=== PATIENT | male | born 1940 | race Caucasian/White ===

== ENCOUNTER 2020-04-02 10:28 | Outpatient (CLI) | payer MEDICARE, SELFPAY ==
[2020-04-02 10:44] LABS: Basophils Percent Auto 0.4 % (0.2-1.2); Eosinophils Absolute Auto 0.2 K/mm3 (0-0.3); Eosinophils Percent Auto 3.2 % (0-4.4); Hematocrit 48.3 % (42.0-52.0); Hemoglobin 16.6 g/dL (14.0-18.0); Immature Granulocyte Absolute 0.01 K/mm3 (0.00-0.031); Immature Granulocyte Percent A 0.1 % (0-0.5); Lymphocytes Absolute Auto 0.93 K/mm3 (0.9-3.2); Lymphocytes Percent Auto 13.6 % (18.3-44.2); Mean Corpuscular HGB Conc 34.4 g/dl (32-36); Mean Corpuscular Hemoglobin 35.7 pg (26-34); Mean Corpuscular Volume 103.9 fl (80-100); Monocytes Absolute Auto 0.8 K/mm3 (0.1-0.6); Monocytes Percent Auto 11.6 % (2.6-8.5); Neutrophils Absolute Auto 4.9 K/mm3 (1.3-6.7); Neutrophils Percent Auto 71.1 % (45.5-73.1); Platelet Count Result 200 k/mm3 (150-375); Red Blood Count 4.65 M/mm3 (4.6-6.20); Red Cell Distribution Width 11.9 % (11.5-14.5); White Blood Count 6.8 K/mm3 (4.5-10.0)
[2020-04-02 12:20] LABS: Alanine Aminotransferase 18 U/L (4-50); Albumin Level 4.2 g/dL (3.5-5.1); Alkaline Phosphatase 54 U/L (38-126); Anion Gap 8 mmol/L (8-16); Aspartate Amino Transferase 33 U/L (17-59); Bilirubin,Total 0.5 mg/dL (0.2-1.3); Blood Urea Nitrogen 21 mg/dL (9-20); Calcium 9.3 mg/dL (8.4-10.2); Carbon Dioxide 25 mmol/L (22-30); Chloride 105 mmol/L (98-107); Estimated Glomerular Filt Rate > 60; Glucose 91 mg/dL (75-110); Potassium 4.7 mmol/L (3.4-5.0); Sodium 138 mmol/L (137-145)
[2020-04-02 13:26] LABS: Folic Acid > 20.0 ng/mL (2.76->20)
== END 2020-04-02 10:29 | disposition home or self-care (01) ==
PROVIDERS: PCP Family Medicine; Visit Provider Internal Medicine Hematology & Oncology
DX: T45.8X Poisoning by, adverse effect of and underdosing of other primarily systemic and hematological agents (principal)
CPT/HCPCS: 36415; 80053; 82607; 82746; 85025

== ENCOUNTER 2020-09-05 08:03 | Outpatient (CLI) | payer MEDICARE, SELFPAY ==
[2020-09-05 08:38] LABS: Cholesterol 130 mg/dL (0-200); HDL Direct 30 mg/dL; Triglycerides 148 mg/dL (<150)
[2020-09-05 08:55] LABS: LDL Cholesterol Direct 78 mg/dL
== END 2020-09-05 08:04 | disposition home or self-care (01) ==
PROVIDERS: Family Provider Family Medicine; PCP Family Medicine; Visit Provider Internal Medicine Cardiovascular Disease
DX: E78.00 Pure hypercholesterolemia, unspecified (principal); I25.10 Atherosclerotic heart disease of native coronary artery without angina pectoris
CPT/HCPCS: 36415; 80061

== ENCOUNTER 2020-12-28 10:59 | Outpatient (CLI) | payer MEDICARE, SELFPAY ==
[2020-12-28 11:20] LABS: Basophils Absolute Auto 0.1 K/mm3 (0.0-0.1); Basophils Percent Auto 0.8 % (0.2-1.2); Eosinophils Absolute Auto 0.2 K/mm3 (0-0.3); Eosinophils Percent Auto 2.9 % (0-4.4); Hematocrit 48.7 % (42.0-52.0); Hemoglobin 16.6 g/dL (14.0-18.0); Immature Granulocyte Absolute 0.01 K/mm3 (0.00-0.031); Immature Granulocyte Percent A 0.2 % (0-0.5); Lymphocytes Absolute Auto 1.08 K/mm3 (0.9-3.2); Lymphocytes Percent Auto 17.1 % (18.3-44.2); Mean Corpuscular HGB Conc 34.1 g/dl (32-36); Mean Corpuscular Hemoglobin 35.6 pg (26-34); Mean Corpuscular Volume 104.5 fl (80-100); Mean Platelet Volume 9.7 fl (7.4-10.4); Monocytes Absolute Auto 0.8 K/mm3 (0.1-0.6); Monocytes Percent Auto 12.2 % (2.6-8.5); Neutrophils Absolute Auto 4.2 K/mm3 (1.3-6.7); Neutrophils Percent Auto 66.8 % (45.5-73.1); Platelet Count Result 220 k/mm3 (150-375); Red Blood Count 4.66 M/mm3 (4.6-6.20); Red Cell Distribution Width 12.2 % (11.5-14.5); White Blood Count 6.3 K/mm3 (4.5-10.0)
[2020-12-28 12:41] LABS: Alanine Aminotransferase 23 U/L (4-50); Albumin Level 4.4 g/dL (3.5-5.1); Alkaline Phosphatase 58 U/L (38-126); Anion Gap 6 mmol/L (8-16); Aspartate Amino Transferase 44 U/L (17-59); Bilirubin,Total 0.6 mg/dL (0.2-1.3); Blood Urea Nitrogen 19 mg/dL (9-20); Calcium 9.9 mg/dL (8.4-10.2); Carbon Dioxide 28 mmol/L (22-30); Chloride 103 mmol/L (98-107); Estimated Glomerular Filt Rate > 60; Glucose 82 mg/dL (75-110); Potassium 4.9 mmol/L (3.4-5.0); Sodium 137 mmol/L (137-145)
[2020-12-28 14:48] LABS: Folic Acid > 20.0 ng/mL (2.76->20)
== END 2020-12-28 11:00 | disposition home or self-care (01) ==
LOC: ANHLAB 11:01
PROVIDERS: PCP Family Medicine; Visit Provider Internal Medicine Hematology & Oncology
DX: T45.8X Poisoning by, adverse effect of and underdosing of other primarily systemic and hematological agents (principal)
CPT/HCPCS: 36415; 80053; 82607; 82746; 85025

== ENCOUNTER 2021-10-25 07:39 | Outpatient (CLI) | payer MEDICARE, SELFPAY ==
[2021-10-25 09:00] LABS: Alanine Aminotransferase 25 U/L (4-50); Albumin Level 4.2 g/dL (3.5-5.1); Alkaline Phosphatase 66 U/L (38-126); Anion Gap 5 mmol/L (8-16); Aspartate Amino Transferase 41 U/L (17-59); Bilirubin,Total 0.6 mg/dL (0.2-1.3); Blood Urea Nitrogen 22 mg/dL (9-20); Calcium 8.7 mg/dL (8.4-10.2); Carbon Dioxide 30 mmol/L (22-30); Chloride 104 mmol/L (98-107); Cholesterol 126 mg/dL (0-200); Estimated Glomerular Filt Rate > 60; Glucose 91 mg/dL (65-110); HDL Direct 29 mg/dL; Potassium 4.1 mmol/L (3.4-5.0); Sodium 139 mmol/L (137-145); Triglycerides 147 mg/dL (<150)
[2021-10-25 09:12] LABS: LDL Cholesterol Direct 66 mg/dL
== END 2021-10-25 07:40 | disposition home or self-care (01) ==
LOC: ANHLAB 07:43
PROVIDERS: PCP Family Medicine; Visit Provider Internal Medicine Cardiovascular Disease
DX: I25.10 Atherosclerotic heart disease of native coronary artery without angina pectoris (principal); E78.00 Pure hypercholesterolemia, unspecified
CPT/HCPCS: 36415; 80053; 80061

== ENCOUNTER 2021-12-18 14:57 | Outpatient (CLI) | payer MEDICARE, SELFPAY ==
[2021-12-18 15:10] LABS: Basophils Percent Auto 0.5 % (0.2-1.2); Eosinophils Absolute Auto 0.2 K/mm3 (0-0.3); Eosinophils Percent Auto 2.2 % (0-4.4); Hematocrit 48.2 % (42.0-52.0); Immature Granulocyte Absolute 0.02 K/mm3 (0.00-0.031); Immature Granulocyte Percent A 0.3 % (0-0.5); Lymphocytes Absolute Auto 1.06 K/mm3 (0.9-3.2); Lymphocytes Percent Auto 14.5 % (18.3-44.2); Mean Corpuscular HGB Conc 33.2 g/dl (32-36); Mean Corpuscular Hemoglobin 36.4 pg (26-34); Mean Corpuscular Volume 109.5 fl (80-100); Mean Platelet Volume 9.3 fl (7.4-10.4); Monocytes Absolute Auto 0.9 K/mm3 (0.1-0.6); Monocytes Percent Auto 11.8 % (2.6-8.5); Neutrophils Absolute Auto 5.2 K/mm3 (1.3-6.7); Neutrophils Percent Auto 70.7 % (45.5-73.1); Platelet Count Result 250 k/mm3 (150-375); White Blood Count 7.3 K/mm3 (4.5-10.0)
[2021-12-18 15:32] LABS: Alanine Aminotransferase 25 U/L (4-50); Albumin Level 4.1 g/dL (3.5-5.1); Alkaline Phosphatase 86 U/L (38-126); Anion Gap 5 mmol/L (8-16); Aspartate Amino Transferase 38 U/L (17-59); Bilirubin,Total 0.4 mg/dL (0.2-1.3); Blood Urea Nitrogen 22 mg/dL (9-20); Calcium 8.7 mg/dL (8.4-10.2); Carbon Dioxide 27 mmol/L (22-30); Chloride 105 mmol/L (98-107); Estimated Glomerular Filt Rate > 60; Glucose 110 mg/dL (65-110); Potassium 4.5 mmol/L (3.4-5.0); Sodium 137 mmol/L (137-145)
[2021-12-18 16:40] LABS: Folic Acid > 20.0 ng/mL (2.76->20)
== END 2021-12-18 14:58 | disposition home or self-care (01) ==
LOC: ANHLAB 14:58
PROVIDERS: PCP Family Medicine; Visit Provider Internal Medicine Hematology & Oncology
DX: T45.8X Poisoning by, adverse effect of and underdosing of other primarily systemic and hematological agents (principal)
CPT/HCPCS: 36415; 80053; 82607; 82746; 85025

== ENCOUNTER 2022-04-12 09:31 | Outpatient (CLI) | payer MEDICARE, OTHER, SELFPAY ==
--- NOTE | ~2022-04-12 | MR_ITS ---
EXAMINATION: MR lumbar spine wo con DATE: 04/12/2022 10:15 INDICATION: Lumbar scoliosis. Degenerative disc disease. Back pain. TECHNIQUE: Magnetic resonance imaging (MRI) of the lumbar spine was performed without intravenous con trast. Sequences included sagittal T2-weighted FSE, sagittal T2-weighted FS FSE, sagittal T1-weighted FSE, and axial T2-weighted FSE. COMPARISON: Lumbar spine MRI 08/03/2018 FINDINGS: There is 21 degrees dextroscoliosis of thoracolumbar spine. There is 3 mm retrolisthesis of L1 on L2. Vertebral body heights are normal. There is severely decreased disc height from T12-L1 thr ough L5-S1 with endplate remodeling. There are bridging endplate osteophytes at multiple levels. The distal spinal cord signal intensity is normal. The conus medullaris is at L2. The following disc leve ls are specifically discussed: T12-L1: The disc is bulging and has an annular fissure. There is moderate bilateral facet joint osteo arthritis. There is mild bilateral neural foraminal stenosis. There is mild central canal stenosis. L1-L2: The disc is bulging and has an annular fissure. There is mild bilateral facet joint osteoarthr itis. There is mild right and moderate left neural foraminal stenosis. There is mild central canal st enosis. L2-L3: The disc is bulging and has an annular fissure. There is moderate right and mild left facet oliverio int osteoarthritis. There is mild right and moderate left neural foraminal stenosis. There is mild ce ntral canal stenosis. L3-L4: The disc is bulging and has an annular fissure. There is severe bilateral facet joint osteoart hritis. There is mild bilateral neural foraminal stenosis. There is mild central canal stenosis. L4-L5: The disc is bulging. There is mild bilateral facet joint osteoarthritis. There is moderate rig ht and mild left neural foraminal stenosis. There is mild central canal stenosis. L5-S1: The disc does not extend beyond the endplate margin. There is mild bilateral facet joint osteo arthritis. There is mild bilateral neural foraminal stenosis. There is no central canal stenosis. IMPRESSION: 1. Severe lumbar spondylosis, stable from 08/03/2018. 2. Thoracolumbar dextroscoliosis. Reviewed, dictated and finalized at location A.
== END 2022-04-12 09:32 | disposition home or self-care (01) ==
PROVIDERS: PCP Family Medicine
DX: M41.9 Scoliosis, unspecified (principal); M51.36 Other intervertebral disc degeneration, lumbar region; M47.896 Other spondylosis, lumbar region
CPT/HCPCS: 72148

== ENCOUNTER 2022-12-29 14:22 | Outpatient (CLI) | payer MEDICARE, OTHER, SELFPAY ==
--- NOTE | ~2022-12-29 | CT_ITS ---
EXAMINATION: CT abdomen pelvis wo/w con DATE: 12/29/2022 15:02 INDICATION: Hematuria TECHNIQUE: Computed tomography (CT) of the abdomen and pelvis was performed without intravenous contr ast. CT of the abdomen and pelvis was then performed with a total of 130 mL Omnipaque-350 intravenous contrast using a double-bolus technique for simultaneous opacification of the renal parenchyma and r enal collecting system. Automated exposure control and iterative reconstruction technique were employ ed. The dose-length product was 1131.06 mGy-cm. COMPARISON: 09/01/2018 FINDINGS: Mild bibasilar atelectasis. Heart size is normal. Atherosclerotic coronary artery calcific location. No pericardial or pleural effusion. 1.3 x 1.0 cm likely reactive anterior mediastinal lymph node. [place] cified right hilar and subcarinal lymph nodes as well as a a few small splenic and hepatic calcificat ions, all consistent with old granulomatous disease. Large calcified gallstone within the otherwise n ormal appearing gallbladder. No intra or extrahepatic biliary ductal dilation. Pancreas and bilateral adrenal glands are normal. 1.8 cm nonenhancing right renal cyst. No urolithiasis or hydronephrosis. The ureters are opacified in their near entirety with no evident filling defects or urothelial irregu larities. There are small regions of relatively hypoenhancing cortical scarring with associated focal atrophy at the upper poles of the bilateral kidneys likely sequela of prior infection or infarction. Marked enlargement of the prostate which measures 8.6 x 6.7 x 7.3 cm which impresses upon the base o f the bladder. There are postoperative changes of the prostate with surgical clips with interposition primarily along the right anterior margin of the prostate which suggests mass effect is asymmetric e nlargement of the proximal tip centered at the posterior left side of the prostate. There is moderate colonic diverticulosis with a sigmoid predominance. There is no adjacent inflammatory change to sug gest diverticulitis. Small bowel and appendix are normal. No free intraperitoneal gas or fluid. No pa thologically enlarged abdominal or pelvic lymphadenopathy. Lumbar dextro scoliosis with severe lumbar and lower thoracic spondylosis. There are also bridging osteophytes at multiple levels in the spine, consistent with diffuse idiopathic skeletal hyperostosis (DISH). IMPRESSION: 1. Small regions of cortical scarring at the upper poles of both kidneys likely sequela of prior infe ction or infarctions. No urolithiasis or urothelial irregularities. 2. Marked prostatomegaly with postoperative change primarily along the right anterior side of the pro state suggesting asymmetric enlargement or mass effect centered at the more posterior left side of th e prostate which is of indeterminate etiology or significance. 3. Cholelithiasis. 4. Diverticulosis. Reviewed, dictated and finalized at location A. IMPRESSION: 1. Small regions of cortical scarring at the upper poles of both kidneys likely sequela of prior infection or infarctions. No urolithiasis or urothelial irreg ularities. 2. Marked prostatomegaly with postoperative change primarily along the right an terior side of the prostate suggesting asymmetric enlargement or mass effect ce ntered at the more posterior left side of the prostate which is of indeterminat e etiology or significance. 3. Cholelithiasis. 4. Diverticulosis.
[2022-12-29 14:48] LABS: Estimated Glomerular Filt Rate 58
== END 2022-12-29 14:23 | disposition home or self-care (01) ==
PROVIDERS: PCP Family Medicine; Visit Provider Urology
DX: R31.0 Gross hematuria (principal); K57.30 Diverticulosis of large intestine without perforation or abscess without bleeding; K80.20 Calculus of gallbladder without cholecystitis without obstruction
CPT/HCPCS: 74178; Q9967

== ENCOUNTER 2023-01-19 08:10 | Outpatient (CLI) | payer MEDICARE, OTHER, SELFPAY ==
[2023-01-19 08:22] LABS: Basophils Percent Auto 0.4 % (0.2-1.2); Eosinophils Absolute Auto 0.2 K/mm3 (0-0.3); Eosinophils Percent Auto 2.5 % (0-4.4); Hematocrit 40.3 % (42.0-52.0); Hemoglobin 13.6 g/dL (14.0-18.0); Immature Granulocyte Absolute 0.02 K/mm3 (0.00-0.031); Immature Granulocyte Percent A 0.3 % (0-0.5); Lymphocytes Absolute Auto 0.85 K/mm3 (0.9-3.2); Lymphocytes Percent Auto 12.4 % (18.3-44.2); Mean Corpuscular HGB Conc 33.7 g/dl (32-36); Mean Corpuscular Hemoglobin 36.6 pg (26-34); Mean Corpuscular Volume 108.3 fl (80-100); Mean Platelet Volume 9.1 fl (7.4-10.4); Monocytes Absolute Auto 0.8 K/mm3 (0.1-0.6); Monocytes Percent Auto 12.3 % (2.6-8.5); Neutrophils Absolute Auto 4.9 K/mm3 (1.3-6.7); Neutrophils Percent Auto 72.1 % (45.5-73.1); Platelet Count Result 236 k/mm3 (150-375); Red Blood Count 3.72 M/mm3 (4.6-6.20); Red Cell Distribution Width 12.2 % (11.5-14.5); White Blood Count 6.9 K/mm3 (4.5-10.0)
[2023-01-19 10:29] LABS: Alanine Aminotransferase 25 U/L (6-50); Albumin Level 4.1 g/dL (3.5-5.1); Alkaline Phosphatase 59 U/L (38-126); Anion Gap 6 mmol/L (8-16); Aspartate Amino Transferase 39 U/L (17-59); Bilirubin,Total 0.7 mg/dL (0.2-1.3); Blood Urea Nitrogen 20 mg/dL (9-20); Calcium 8.6 mg/dL (8.4-10.2); Carbon Dioxide 28 mmol/L (22-30); Chloride 104 mmol/L (98-107); Estimated Glomerular Filt Rate > 60; Glucose 92 mg/dL (65-110); Potassium 4.3 mmol/L (3.4-5.0); Sodium 138 mmol/L (137-145)
[2023-01-19 11:39] LABS: Folic Acid > 20.0 ng/mL (2.76->20)
== END 2023-01-19 08:11 | disposition home or self-care (01) ==
LOC: ANHLAB 08:12
PROVIDERS: PCP Family Medicine; Visit Provider Internal Medicine Hematology & Oncology
DX: T45.8X Poisoning by, adverse effect of and underdosing of other primarily systemic and hematological agents (principal)
CPT/HCPCS: 36415; 80053; 82607; 82746; 85025

== ENCOUNTER 2023-01-30 09:16 | Outpatient (CLI) | payer MEDICARE, OTHER, SELFPAY ==
--- NOTE | 2023-01-30 09:34 | ECG_ITS ---
Measurements Intervals [place] Rate: 59 P: 34 MN: 201 QRS: 31 QRSD: 97 T: 76 QT: 388 QTc: 387 Interpretive Statements SINUS BRADYCARDIA OTHERWISE NORMAL ECG NO PREVIOUS ECG AVAILABLE FOR COMPARISON Electronically Signed On 01-30-2023 13:30:37 CDT by Leonard Justice M.D.
== END 2023-01-30 09:17 | disposition home or self-care (01) ==
PROVIDERS: PCP Family Medicine; Visit Provider Urology
DX: E78.2 Mixed hyperlipidemia (principal); Z01.818 Encounter for other preprocedural examination
CPT/HCPCS: 93005

== ENCOUNTER 2023-02-06 15:36 | Observation (INO) | payer MEDICARE, OTHER, SELFPAY ==
--- NOTE | 2023-01-30 08:25 | PC.NURSE ---
Report to the Outpatient Waiting Room, entrance under the green pavilion located off [facility], at time _1000 on date _02/05/23 . Planned Procedure Time: _1200 . Time changes happen often and if your time is changed the preop area will call you the afternoon before. - You and your visitor will be asked to self-screen and do not enter if you have any COVID symptoms. - A mask is optional within the hospital at this time. Patients may have clear liquids (water, carbonated beverages, clear teas, apple juice) until 3 hours prior to surgery with a maximum of 20 ounces. - No food from midnight until time of surgery - Infants may have breast milk until 4 hours before surgery, infant formula 6 hours prior to surgery. - Children will be allowed to drink immediately following surgery. If applicable, please bring a bottle or sippy cup to assist with drinking. Juice, water, soda, and popsicles are readily available. For infants on formula, please bring formula the day of surgery. Pacifiers are allowed. Take the following medications with a SIP of water the morning of surgery: __CARVEDILOL DO NOT STOP ANY OF YOUR OTHER PRESCRIPTION MEDICATIONS PRIOR TO SURGERY ?EXCEPT THE FOLLOWING Medications to discontinue per physician ___PT STATES HOLD ASPIRIN 7 DAYS PRE OP PER DR EDWARDS.LAST DOSE 01/28/23. ALL VITAMINS/SUPPLEMENTS 3 DAYS PRE OP.LAST DOSE 02/01/23 Please no make-up, nail yakut, hairspray, perfume, deodorant, or body powder the day of surgery. No jewelry (including any body piercings) or valuables the day of surgery, leave them at home. Please take a shower or bath the night before, or the morning of, surgery with an antibacterial soap. Wear comfortable, loose fitting clothing. Children are encouraged to wear pajamas. - Jewelry must be removed prior to entering the operating room. Rings and piercings that are not removed may be cut off. - The hospital will not accept responsibility for valuables. - Please leave all valuables, including medications, at home the day of surgery. If you are going home after surgery, a licensed uke driver must drive you home. - NO public transportation without another adult if you receive anesthesia. - We recommend that an adult stay with you for 24 hours following discharge. - We also recommend that you do not drive, make important decision, drink alcoholic beverages, or take any drugs that were not prescribed by your health care provider for at least 24 hours after your discharge time. For Pediatric surgeries, we recommend two adults accompany the child home. Follow any additional instructions given to you from your surgeon. If you or anyone in your household have experienced Covid symptoms in the past week, please notify your surgeon or the nurse liaison at the phone number below for possible testing. Telephone instructions given to _PATIENT and asked if any additional questions and then verbalized understanding. Patient advised to call surgeon office or pre surgery nurse liaison [phone] if any additional questions.
--- NOTE | 2023-01-30 08:40 | PC.NURSE ---
Addendum entered by Kassandra Munoz RN 01/30/23 08:47: INSTRUCTIONS CHART ON WRONG PT Original Note: Report to the Outpatient Waiting Room, entrance under the green pavilion located off [facility], at time _1000 on date __02/05/23 . Planned Procedure Time: _1200 . Time changes happen often and if your time is changed the preop area will call you the afternoon before. - You and your visitor will be asked to self-screen and do not enter if you have any COVID symptoms. - A mask is optional within the hospital at this time. Patients may have clear liquids (water, carbonated beverages, clear teas, apple juice) until 3 hours prior to surgery with a maximum of 20 ounces. - No food from midnight until time of surgery - Infants may have breast milk until 4 hours before surgery, infant formula 6 hours prior to surgery. - Children will be allowed to drink immediately following surgery. If applicable, please bring a bottle or sippy cup to assist with drinking. Juice, water, soda, and popsicles are readily available. For infants on formula, please bring formula the day of surgery. Pacifiers are allowed. Take the following medications with a SIP of water the morning of surgery: ____NONE DO NOT STOP ANY OF YOUR OTHER PRESCRIPTION MEDICATIONS PRIOR TO SURGERY ?EXCEPT THE FOLLOWING Medications to discontinue per physician PT INSTRUCTED TO CALL DR ZAMORA REGARDING IBUPROFEN Please no make-up, nail tajik, hairspray, perfume, deodorant, or body powder the day of surgery. No jewelry (including any body piercings) or valuables the day of surgery, leave them at home. Please take a shower or bath the night before, or the morning of, surgery with an antibacterial soap. Wear comfortable, loose fitting clothing. Children are encouraged to wear pajamas. - Jewelry must be removed prior to entering the operating room. Rings and piercings that are not removed may be cut off. - The hospital will not accept responsibility for valuables. - Please leave all valuables, including medications, at home the day of surgery. If you are going home after surgery, a licensed bicycle taxi driver must drive you home. - NO public transportation without another adult if you receive anesthesia. - We recommend that an adult stay with you for 24 hours following discharge. - We also recommend that you do not drive, make important decision, drink alcoholic beverages, or take any drugs that were not prescribed by your health care provider for at least 24 hours after your discharge time. For Pediatric surgeries, we recommend two adults accompany the child home. Follow any additional instructions given to you from your surgeon. If you or anyone in your household have experienced Covid symptoms in the past week, please notify your surgeon or the nurse liaison at the phone number below for possible testing. Telephone instructions given to ___PATIENT and asked if any additional questions and then verbalized understanding. Patient advised to call surgeon office or pre surgery nurse liaison [phone] if any additional questions.
--- NOTE | 2023-01-30 09:11 | SUR.PREOP ---
Paper documentation exists on this patient due to [employer] downtime on 01/28/23
--- NOTE | 2023-02-02 07:26 | PM.IMHP ---
H&P: HPI History of Present Illness Date/Time: 02/02/23 07:26 Chief Complaint: difficulty urinating and intermittent hematuria Narrative: longstanding patient of ours with outlet obstructive voiding symptoms. He has been managed for years with a combination of either alpha blockers alone or combination therapy with alpha myra and finasteride. In addition to voiding dysfunction he is also had recent problems with intermittent hematuria secondary to BPH. Recent cystoscopy shows a 2.5-3 cm prostatic urethra with high median bar. After discussion of therapeutic options he is elected for TURP. He is aware the risk including, but not limited to, adverse cardiopulmonary events, persistent voiding symptoms, hematuria. Review of Systems Cardiovascular: Cardiovascular: Denies chest pain, Denies lightheadedness, Denies palpitations and Denies dyspnea Respiratory: Respiratory: Denies dyspnea Gastrointestinal: Gastrointestinal: Denies diarrhea, Denies nausea and Denies vomiting Genitourinary: Genitourinary: Denies hematuria and Denies dysuria Endocrine: Endocrine: Denies palpitations [facility] Past Medical History Medical History (Updated 01/26/23 @ 09:23 by Naif Nava MD) Anemia, unspecified Anxiety disorder, unspecified Atherosclerotic heart disease of [place] coronary artery without angina pectoris BMI 23.0-23.9, adult BMI 24.0-24.9, adult BPH with obstruction/lower urinary tract symptoms Hematuria Hip osteoarthritis Lumbar spondylosis Mixed hyperlipidemia Restless leg syndrome Family History Family History Mother Family history of coronary artery disease CHF (congestive heart failure) Father CHF (congestive heart failure) Sibling No problems noted. Sibling No problems noted. Other Family history of malignant neoplasm Social History Social History Smoking status: Never smoker Second hand tobacco smoke exposure: No Alcohol intake: current Substance use: never Substance use type: does not use Lack of Transportation: No Lack of Food: Never True Current Housing: I Have Housing Concerned About Future Housing: No Difficulty Paying Gas/Electric Bills: No Difficulty Paying for Meds: No Currently Unemployed: No Education: Grade School Difficulty w/ Childcare or Family Care: No Living arrangements: with family Additional living arrangements comments: son lives with him. 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 Gender identity (if verbalized by the patient): Male Meds Home Medications and Allergies Home Medications Medication Instructions Recorded Confirmed Type nitroglycerin 0.4 mg sublingual 0.4 mg sublingual Q5M PRN chest 08/12/19 01/26/23 Rx tablet pain #10 tabs carvedilol 12.5 mg tablet (Coreg) 12.5 mg PO Q12H 01/26/20 01/26/23 History tamsulosin 0.4 mg capsule (Flomax) 0.4 mg PO DAILY 01/26/20 01/26/23 History finasteride 1 mg tablet 1 mg PO DAILY 03/19/22 01/26/23 History aspirin 81 mg tablet,delayed 81 mg PO DAILY 05/19/22 01/26/23 History release (Adult Low Dose Aspirin) atorvastatin 40 mg tablet 40 mg PO .QD 05/19/22 01/26/23 History zolpidem 10 mg tablet (Ambien) 5 mg PO ONCE #30 tabs 11/06/22 01/26/23 Rx Allergies Allergy/AdvReac Type Severity Reaction Status Date / Time povidone-iodine Allergy Mild BURNING, Verified 01/26/23 08:27 ITCHING WHEN USED AROUND EYES Exam Const: General: no acute distress Resp: Effort & Inspection: normal respiratory effort GI: Inspection: non-distended GI Palp: No abdominal tenderness and No Guarding due to palpation present (GI) Auscultation: normal bowel sounds Assessment and Plan Assessment and plan (1) Hematuria: Qualifiers: Hematuria type: gross Qualified C
[2023-02-05] VITALS (14 sets, daily range): BP systolic 100–148; BP diastolic 54–82; PULSE 53–68; RESP 14–20; TEMP 36.1–36.4; O2SAT 95–100; BMI 24.0
--- NOTE | 2023-02-05 06:31 | WPDHPUPDATE1 ---
History and Physical Update Update Date/Time: 02/05/23 06:31 History and Physical has been reviewed, including an updated exam of the patient. There are NO changes in the patient's condition. Risks, benefits, and alternatives have been discussed and questions answered. Patient agrees to proceed with procedure.
[2023-02-05] MEDS: LACTATED RINGERS 1,000 ML 30 ML IV CONT ×2 (11:30→13:23)
--- NOTE | 2023-02-05 12:04 | WPDANESEPPF ---
Anes - Initial Pre Proc Eval Procedure: Operation Date: 02/05/23 12:00 Proposed Procedures p Trans Urethral Resection Prostate - Garrett Turcios MD Date/Time: 02/05/23 12:04 Surgeon: Garrett Turcios MD Pre Op Diagnosis: bph gross hematuria Patient Data Age: 82 Gender: M Height: 1.83 m Weight: 80.4 kg Last Vital Signs Temp 36.4 C L 02/05/23 11:21 Pulse 65 02/05/23 11:21 Resp 16 02/05/23 11:21 BP 128/65 02/05/23 11:21 Pulse Ox 100 02/05/23 11:21 O2 Del Method Room Air 02/05/23 11:21 Allergies Allergy/AdvReac Type Severity Reaction Status Date / Time No Known Allergies Allergy Verified 02/05/23 11:17 Home Medications Medication Instructions Recorded Confirmed Type nitroglycerin 0.4 mg sublingual 0.4 mg sublingual Q5M PRN chest 08/12/19 02/05/23 Rx tablet pain #10 tabs carvedilol 12.5 mg tablet (Coreg) 12.5 mg PO Q12H 01/26/20 02/05/23 History tamsulosin 0.4 mg capsule (Flomax) 0.4 mg PO DAILY 01/26/20 02/05/23 History finasteride 1 mg tablet 1 mg PO DAILY 03/19/22 02/05/23 History aspirin 81 mg tablet,delayed 81 mg PO DAILY 05/19/22 02/05/23 History release (Adult Low Dose Aspirin) atorvastatin 40 mg tablet 40 mg PO .QD 05/19/22 02/05/23 History zolpidem 10 mg tablet (Ambien) 5 mg PO ONCE #30 tabs 11/06/22 02/05/23 Rx Patient hx anesthesia problems: none Family hx anesthesia problems: none Results Review: All pre-operative results and documents have been reviewed as part of the pre-operative evaluation. [facility] Past Medical History Medical History (Updated 02/05/23 @ 12:05 by Lance Sexton MD) Anemia, unspecified Anxiety disorder, unspecified Atherosclerotic heart disease of [place] coronary artery without angina pectoris BMI 23.0-23.9, adult BMI 24.0-24.9, adult BPH with obstruction/lower urinary tract symptoms CAD (coronary artery disease) Hematuria Hip osteoarthritis Lumbar spondylosis Mixed hyperlipidemia Myocardial infarct Restless leg syndrome Surgical History Surgical History History of coronary artery stent placement Family History Family History Mother Family history of coronary artery disease CHF (congestive heart failure) Father CHF (congestive heart failure) Sibling No problems noted. Sibling No problems noted. Other Family history of malignant neoplasm Social History Social History Smoking status: Never smoker Second hand tobacco smoke exposure: No Alcohol intake: current Substance use: never Substance use type: does not use Lack of Transportation: No Lack of Food: Never True Current Housing: I Have Housing Concerned About Future Housing: No Difficulty Paying Gas/Electric Bills: No Difficulty Paying for Meds: No Currently Unemployed: No Education: Grade School Difficulty w/ Childcare or Family Care: No Living arrangements: with family Additional living arrangements comments: son lives with him. 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 Informed Consent: The patient's anesthetic plan and its attendant risks and benefits were discussed with the patient/family/POA. Questions were eric
[2023-02-05] MEDS: ceFAZolin 2 GM/D5W 50 ML 2 GM/50 ML BAG IVPB (12:06)
[2023-02-05] MEDS: LIDOCAINE HCL 2% GEL UROJET 10 ML PKG MUCOUS MEM (12:57)
--- NOTE | 2023-02-05 13:31 | W.PM.PROC2 ---
Procedure Note - Detailed Date of Procedure 02/05/23 Pre-op Diagnosis BPH, gross hematuria Post-op Diagnosis Same Procedure Performed TURP Surgeon Garrett Turcios MD Anesthesia General Description of Procedure The patient was brought to the operative suite where he is prepped and draped in routine sterile fashion while in the dorsal lithotomy position after the uneventful induction of a general LMA anesthetic. A 27 [place] resectoscope sheath was placed into his bladder. He had no urethral strictures. The patient had [trilobar/bilobar] hyperplasia with a large median lobe. The bladder itself was endoscopically normal, showing no mucosal hyperemia, intravesical neoplasm or foreign bodies. There was a single, orthotopic ureteral orifice bilaterally. These orifices were identified and preserved throughout the remainder of the procedure. Attention was first turned to resection of the median lobe. This resection was undertaken from the bladder neck to the verumontanum and carried out until the transverse fibers of the bladder neck were identified. The left lateral lobe was then resected starting at the 6 o'clock position, working counter clockwise to the 12 o'clock position. Again, resection was carried out from the bladder neck to the verumontanum until the capsular fibers of the prostate were identified. The right lateral lobe was resected in a similar fashion starting at the 6 o'clock position working clockwise to the 12 o'clock position and carried out until the capsular fibers of the prostate were identified. Apical tissue was then circumferentially resected. All chips were evacuated from the bladder using an [place] St[place] evacuator. Hemostasis was obtained with electric cautery. The ureteral orifices were again inspected and found to be without injury. Estimated blood loss throughout this procedure was 75cc. The patient was taken to recovery room having tolerated this well. Estimated Blood Loss -75.0 Drains Yes Packing No Pathology Yes Complications No immediate complications Condition Stable
[2023-02-05] MEDS: HYOSCYAMINE SULFATE 0.125 MG TABLET PO (13:42)
[2023-02-05] MEDS: fentaNYL CITRATE INJ (*CRX) 100 MCG/2 ML VIAL 25 MCG IV PUSH ×6 (13:57→14:45)
--- NOTE | 2023-02-05 14:36 | SUR.PHASEI ---
Dr. Turcios at bedside to irrigate de los santos catheter.
--- NOTE | 2023-02-05 15:29 | ADMGEN ---
This patient, Emre Rocha, was admitted to Medical Room 254-01. Patient/family oriented to hospital policies and general routines including ID bracelet, bed and alarms, visiting hours, pain management, procedures, bathroom and other care routines, personal items, smoking policy, room service/diet, and visiting hours. Information on how to activate the Rapid Response Team has been discussed. Patient/Family are encouraged to report perceived risks to care and to ask questions if they do not understand what they are told or what they should do.
[2023-02-05] MEDS: DEXTROSE 5%/LACTATED RINGERS 1,000 ML 125 ML IV CONT (16:06)
[2023-02-05] MEDS: HYOSCYAMINE SULFATE 0.125 MG TABLET SUBLINGUAL ×2 (16:06→19:43)
[2023-02-05] MEDS: ATORVASTATIN 40 MG TABLET PO (16:58)
[2023-02-05] MEDS: DOCUSATE SODIUM 100 MG CAPSULE PO (16:58)
[2023-02-05] MEDS: SODIUM CHLORIDE 0.9% IV 1,000 ML 250 ML IV CONT (18:36)
[2023-02-05] MEDS: ceFAZolin 1 GM/NS 50 ML 1 GM/50 ML BAG IVPB (19:42)
[2023-02-05 20:12] LABS: Hematocrit 28.7 % (42.0-52.0); Hemoglobin 9.2 g/dL (14.0-18.0)
[2023-02-05] MEDS: HYDROcodone/acetaminophen (*CRX) 5-325 MG TABLET 1 TAB PO (20:37)
[2023-02-06] VITALS (8 sets, daily range): BP systolic 105–142; BP diastolic 54–71; PULSE 76–97; RESP 16–18; TEMP 36.4–37.2; O2SAT 90–98
[2023-02-06] MEDS: HYOSCYAMINE SULFATE 0.125 MG TABLET SUBLINGUAL ×5 (00:17→22:16)
[2023-02-06] MEDS: ceFAZolin 1 GM/NS 50 ML 1 GM/50 ML BAG IVPB (05:47)
[2023-02-06 06:27] LABS: Hematocrit 26.7 % (42.0-52.0); Hemoglobin 8.5 g/dL (14.0-18.0)
[2023-02-06 06:48] LABS: Anion Gap -2 mmol/L (8-16); Blood Urea Nitrogen 16 mg/dL (9-20); Carbon Dioxide 33 mmol/L (22-30); Chloride 105 mmol/L (98-107); Estimated CRCL calculation 69 ml/min; Estimated Glomerular Filt Rate > 60; Glucose 125 mg/dL (65-110); Potassium 3.9 mmol/L (3.4-5.0); Sodium 136 mmol/L (137-145)
[2023-02-06] MEDS: carvediloL 12.5 MG TABLET PO ×2 (08:30→22:16)
[2023-02-06] MEDS: DOCUSATE SODIUM 100 MG CAPSULE PO ×2 (08:31→17:06)
--- NOTE | 2023-02-06 09:05 | WPDUROPN2 ---
Progress Note: A&P Assessment and Plan (1) Hematuria: Qualifiers: Hematuria type: gross Qualified Code(s): R31.0 - Gross hematuria Code(s): R31.9 - Hematuria, unspecified Status: Acute Assessment and Plan: Improved, CBI turned to off. Get patient up to chair and walking in the room. Will re-assess urine this afternoon. If urine stays clear after activity, will plan to fill bladder with CBI fluid and remove de los santos for a voiding trial. H&H has decreased likely d/t dilution from 1L of fluid given post operatively last night for hypotension. Will repeat H&H at noon today. No need to transfuse patient unless HGB is <7. Will re-assess for discharge this afternoon. (2) BPH (benign prostatic hyperplasia): Code(s): N40.0 - Benign prostatic hyperplasia without lower urinary tract symptoms Status: Acute Subjective Subjective Date/Time Seen: 02/06/23 09:05 Post Op day: 1 Interval history: s/p TURP Patient much improved today. Urine is clear/light pink on slow CBI. HGB 8.5, HCT 26.7, however the patient received 1L of fluids last night d/t hypotension. Hypotension has resolved this morning. He is tolerating diet, but has not been up and out of bed yet. Vitals are stable and he is afebrile. Review of Systems Cardiovascular: Cardiovascular: Denies chest pain Respiratory: Respiratory: Reports no additional respiratory complaints Gastrointestinal: Gastrointestinal: Denies abdominal pain, Denies nausea and Denies vomiting Genitourinary: Genitourinary: Reports hematuria, Denies dysuria, Denies flank pain, Denies urinary frequency, Denies urinary hesitancy and Denies urinary urgency Exam Const: General: cooperative and comfortable Resp: Effort & Inspection: normal respiratory effort Cardio: Rate: regular rate GI: GI Palp: Yes Soft to palpation and No Tenderness to palpation present (GI) : General: Yes no CVA tenderness Urinary Catheter: Urinary Catheter: patent and draining, urine clear and urine pink Extrem: Right lower extremity: no edema Left lower extremity: no edema Objective Data Vital Signs Vital Signs: Vital Signs - 24 hr 02/05/23 11:21 02/05/23 13:23 02/05/23 13:40 Temperature 97.5 F L 97.2 F L Pulse Rate 65 68 63 Respiratory Rate 16 18 16 Blood Pressure 128/65 121/71 133/82 Pulse Oximetry 100 100 100 Oxygen Delivery Room Air Simple Face Mask Simple Face Mask Oxygen Flow Rate 6 6 02/05/23 13:55 02/05/23 14:10 02/05/23 14:25 Temperature Pulse Rate 65 58 L 53 L Respiratory Rate 16 14 14 Blood Pressure 148/75 H 139/73 144/68 H Pulse Oximetry 98 99 98 Oxygen Delivery Room Air Room Air Room Air Oxygen Flow Rate 02/05/23 14:40 02/05/23 14:55 02/05/23 15:30 Temperature 97.1 F L Pulse Rate 56 L 59 L 60 Respiratory Rate 16 20 17 Blood Pressure 141/75 H 141/71 H 134/67 Pulse Oximetry 100 99 100 Oxygen Delivery Room Air Room Air Oxygen Flow Rate 02/05/23 16:15 02/05/23 16:13 02/05/23 16:04 Temperature 97.0 F L Pulse Rate 55 L 54 L 53 L Respiratory Rate 17 Blood Pressure 102/61 101/58 L 100/54 L Pulse Oximetry 97 95 99 Oxygen Delivery Oxygen Flow Rate 02/05/23 17:26 02/05/23 15:30 02/05/23 19:15 Temperature 97.0 F L 97.0 F L Pulse Rate 62 67 Respiratory Rate 17 18 Blood Pressure 108/55 L 133/60 Pulse Oximetry 100 99 Oxygen Delivery Room Air Oxygen Flow Rate 02/05/23 19:47 02/06/23 00:47 02/06/23 04:37 Temperature 97.6 F 97.8 F Pulse Rate 96 84 Respiratory Rate 18 18 Blood Pressure 118/66 142/68 H Pulse Oximetry 98 90 Oxygen Delivery Room Air Oxygen Flow Rate 02/06/23 08:30 Temperature Pulse Rate 76 Respiratory Rate Blood Pressure Pulse Oximetry Oxygen Delivery Oxygen Flow Rate Intake/Output Intake/Output: Intake & Output 02/03/23 02/04/23 02/05/23 02/06/23 23:59 23:59 23:59 23:59 Intake Total 11877 1000 Output Total 40838 4498 [facility] -[id number] -
--- NOTE | 2023-02-06 10:05 | WPDANESPN ---
Anes - Prog Note Post-Op Date/Time: 02/06/23 10:05 Cardiovascular status: normal Respiratory status: normal Airway patency: baseline Mental status: baseline Post-Op hydration status: normal Vital Signs: Last Vital Signs Temp 36.7 C 02/06/23 09:09 Pulse 82 02/06/23 09:09 Resp 16 02/06/23 09:09 BP 120/65 02/06/23 09:09 Pulse Ox 98 02/06/23 09:09 O2 Del Method Room Air 02/05/23 19:47 O2 Flow Rate 6 02/05/23 13:40 Pain Score (VAS): 0 I/O: Intake & Output 02/05/23 02/06/23 02/06/23 23:59 07:59 15:59 Intake Total 560 1000 240 Output Total 80488 8007 Balance -20992 -4951 240 Laboratory Tests 02/06/23 06:09 02/06/23 06:09 02/05/23 02/06/23 19:58 06:09 Hgb 9.2 L D 8.5 L Hct 28.7 L 26.7 L Sodium 136 L Potassium 3.9 Chloride 105 Carbon Dioxide 33 H Anion Gap -2 L BUN 16 Creatinine 0.80 Estim Creat Clear Calc 69 Estimated GFR > 60 Glucose 125 H Calcium 8.0 L Post-procedural complaints: none Patient Feedback: Patient satisfied with anesthetic care.
--- NOTE | 2023-02-06 11:56 | PCCCNOTE ---
On 02/06/23, the student, [Mimi Lyle], provided care and completed [facility] documentation on this patient. I have reviewed the student's documentation and agree with the findings.
[2023-02-06] MEDS: CEPHALEXIN 500 MG CAPSULE PO ×3 (12:47→22:16)
[2023-02-06 14:07] LABS: Hematocrit 27.4 % (42.0-52.0); Hemoglobin 8.9 g/dL (14.0-18.0); Mean Corpuscular HGB Conc 32.5 g/dl (32-36); Mean Corpuscular Hemoglobin 35.2 pg (26-34); Mean Corpuscular Volume 108.3 fl (80-100); Mean Platelet Volume 9.5 fl (7.4-10.4); Platelet Count Result 274 k/mm3 (150-375); Red Blood Count 2.53 M/mm3 (4.6-6.20); Red Cell Distribution Width 11.9 % (11.5-14.5); White Blood Count 12.8 K/mm3 (4.5-10.0)
[2023-02-06] MEDS: ATORVASTATIN 40 MG TABLET PO (16:59)
[2023-02-07] MEDS: HYOSCYAMINE SULFATE 0.125 MG TABLET SUBLINGUAL ×4 (00:15→12:23)
[2023-02-07 02:44] VITALS: BP 133/57; PULSE 80; RESP 18; TEMP 37.4; O2SAT 95
[2023-02-07 06:00] VITALS: BP 125/53; PULSE 73; RESP 16; TEMP 36.6; O2SAT 94
[2023-02-07] MEDS: CEPHALEXIN 500 MG CAPSULE PO (08:10)
[2023-02-07] MEDS: DOCUSATE SODIUM 100 MG CAPSULE PO (08:19)
[2023-02-07 08:21] VITALS: PULSE 84
[2023-02-07] MEDS: carvediloL 12.5 MG TABLET PO (08:21)
--- NOTE | 2023-02-07 10:41 | WPDUROPN2 ---
Progress Note: A&P Assessment and Plan (1) BPH (benign prostatic hyperplasia): Code(s): N40.0 - Benign prostatic hyperplasia without lower urinary tract symptoms Status: Acute Assessment and Plan: Postop transurethral section of prostate. Doing well at this time. Will discharge home with Alfonso catheter. Patient to call the office on Thursday for instructions regarding when he wants his catheter removed. Subjective Subjective Date/Time Seen: 02/07/23 10:41 Principal diagnosis: BPH Interval history: doing well overall. Has occasional bladder spasms. Urine is tea-colored in nature. Review of Systems Review of Systems: All systems reviewed & are unremarkable except as noted in HPI and below Exam Const: General: cooperative and comfortable Resp: Effort & Inspection: normal respiratory effort Cardio: Rate: regular rate Rhythm: regular rhythm Urinary Catheter: Urinary Catheter: patent and draining and urine dark Objective Data Vital Signs Vital Signs: Vital Signs - 24 hr 02/06/23 12:47 02/06/23 17:06 02/06/23 22:09 Temperature 36.9 C 37.2 C 36.7 C Pulse Rate 80 88 97 Respiratory Rate 17 17 18 Blood Pressure 138/54 L 136/71 105/58 L Pulse Oximetry 97 98 95 Oxygen Delivery 02/06/23 22:16 02/06/23 20:00 02/07/23 02:44 Temperature 37.4 C Pulse Rate 97 80 Respiratory Rate 18 Blood Pressure 133/57 L Pulse Oximetry 95 Oxygen Delivery Room Air 02/07/23 06:00 02/07/23 08:21 02/07/23 08:00 Temperature 36.6 C Pulse Rate 73 84 Respiratory Rate 16 Blood Pressure 125/53 L Pulse Oximetry 94 Oxygen Delivery Room Air Intake/Output Intake/Output: Intake & Output 02/04/23 02/05/23 02/06/23 02/07/23 23:59 23:59 23:59 23:59 Intake Total 95758 7290 240 Output Total 07370 8411 [id number] [facility] -[phone] [phone] Meds/Results Medications: Active Medications Generic Name Dose Route Start Last Admin Trade Name Freq PRN Reason Stop Dose Admin Hydrocodone Bitart/Acetaminophen 1 tab 02/05/23 15:02 02/05/23 20:37 Hydrocodone/Acetaminophen (*Crx) 5-325 Mg Tablet PO 1 tab Q4H PRN Administration Pain Rated 1-6 Atorvastatin Calcium 40 mg 02/05/23 18:00 02/06/23 16:59 Atorvastatin 40 Mg Tablet PO 40 mg EVENING ATIF Administration Carvedilol 12.5 mg 02/05/23 21:00 02/07/23 08:21 Carvedilol 12.5 Mg Tablet PO 12.5 mg Q12HR ATIF Administration Cephalexin HCl 500 mg 02/06/23 13:00 02/07/23 08:10 Cephalexin 500 Mg Capsule PO 500 mg QID ATIF Administration Docusate Sodium 100 mg 02/05/23 17:00 02/07/23 08:19 Docusate Sodium 100 Mg Capsule PO 100 mg BID [facility] Administration Hyoscyamine 0.125 mg 02/05/23 16:00 02/07/23 08:11 Hyoscyamine Sulfate 0.125 Mg Tablet SUBLINGUAL 0.125 mg Q4H ATIF Administration Morphine Sulfate 2 mg 02/05/23 15:02 Morphine Sulfate (*Crx) 2 Mg/Ml Inj IV PUSH Q2H PRN Pain Rated 7-10 Naloxone HCl 0.1 mg 02/05/23 15:02 Naloxone Hcl 0.4 Mg/Ml Vial IV PUSH Q2M PRN Opiate Reversal Nitroglycerin 0.4 mg 02/05/23 15:02 Nitroglycerin Sl 0.4 Mg Tablet SUBLINGUAL Q5M PRN chest pain Ondansetron HCl 4 mg 02/05/23 15:02 Ondansetron Inj 4 Mg/2 Ml Vial IV PUSH Q12H PRN Nausea And Vomiting Zolpidem Tartrate 5 mg 02/05/23 21:00 Zolpidem Tartrate (*Crx) 5 Mg Tablet PO QHS PRN Insomnia Labs Labs: Laboratory Results - last 24 hr 02/06/23 13:59 WBC 12.8 H RBC 2.53 L Hgb 8.9 L Hct 27.4 L MCV 108.3 H MCH 35.2 H MCHC 32.5 RDW 11.9 Plt Count 274 MPV 9.5
[2023-02-07 10:56] VITALS: BP 128/58; PULSE 70; RESP 16; TEMP 36.5; O2SAT 95
[2023-02-07] MEDS: HYDROcodone/acetaminophen (*CRX) 5-325 MG TABLET 1 TAB PO (12:26)
== END 2023-02-07 12:45 | disposition home or self-care (01) ==
LOC: ANHSURGERY 15:46 → ANH2MED 15:48
PROVIDERS: Nurse Practitioner Adult Health; Admitting Provider Urology; PCP Family Medicine; Visit Provider Urology
PROC: 0VT08ZZ Resection of Prostate, Via Natural or Artificial Opening Endoscopic (ICD-10-PCS; CPT 52601; principal; 2023-02-05 12:00)
DX: N40.0 Benign prostatic hyperplasia without lower urinary tract symptoms (principal); R31.0 Gross hematuria; D64.9 Anemia, unspecified; F41.9 Anxiety disorder, unspecified; I25.10 Atherosclerotic heart disease of native coronary artery without angina pectoris; M16.9 Osteoarthritis of hip, unspecified; M47.816 Spondylosis without myelopathy or radiculopathy, lumbar region; E78.2 Mixed hyperlipidemia; I25.2 Old myocardial infarction; G25.81 Restless legs syndrome; Z79.82 Long term (current) use of aspirin; Z79.899 Other long term (current) drug therapy
CPT/HCPCS: 52601; 36415; 80048; 85014; 85018; 85027; 88305; 88342; A9270; C1758; G0378; J0690; J2704; J3010; J7030; J7120; J7121

== ENCOUNTER 2023-03-03 14:43 | Outpatient (CLI) | payer MEDICARE, OTHER, SELFPAY ==
[2023-03-03 15:12] LABS: Hematocrit 28.7 % (42.0-52.0); Hemoglobin 8.7 g/dL (14.0-18.0)
[2023-03-03 18:59] LABS: Iron 18 ug/dL (49-181)
[2023-03-03 19:12] LABS: Percent Iron Saturation 5 % (20-50)
== END 2023-03-03 14:44 | disposition home or self-care (01) ==
PROVIDERS: PCP Family Medicine; Visit Provider Family Medicine
DX: D51.9 Vitamin B12 deficiency anemia, unspecified (principal)
CPT/HCPCS: 36415; 83540; 83550; 85014; 85018

== ENCOUNTER 2023-05-08 14:20 | Outpatient (CLI) | payer MEDICARE, OTHER, SELFPAY ==
[2023-05-08 14:36] LABS: Hematocrit 46.2 % (42.0-52.0); Hemoglobin 14.8 g/dL (14.0-18.0); Mean Corpuscular Hemoglobin 31.3 pg (26-34); Mean Corpuscular Volume 97.7 fl (80-100); Mean Platelet Volume 9.6 fl (7.4-10.4); Platelet Count Result 241 k/mm3 (150-375); Red Blood Count 4.73 M/mm3 (4.6-6.20); Red Cell Distribution Width 19.7 % (11.5-14.5); White Blood Count 7.3 K/mm3 (4.5-10.0)
[2023-05-08 15:07] LABS: Iron 184 ug/dL (49-181)
[2023-05-08 15:14] LABS: Percent Iron Saturation 62 % (20-50)
== END 2023-05-08 14:21 | disposition home or self-care (01) ==
PROVIDERS: PCP Family Medicine; Referring Provider Urology; Visit Provider Family Medicine
DX: D51.9 Vitamin B12 deficiency anemia, unspecified (principal)
CPT/HCPCS: 36415; 82607; 83540; 83550; 85027

== ENCOUNTER 2023-07-17 10:19 | Outpatient (CLI) | payer MEDICARE, OTHER, SELFPAY ==
[2023-07-17 10:36] LABS: Basophils Absolute Auto 0.1 K/mm3 (0.0-0.1); Basophils Percent Auto 0.7 % (0.2-1.2); Eosinophils Absolute Auto 0.2 K/mm3 (0-0.3); Eosinophils Percent Auto 1.8 % (0-4.4); Hematocrit 49.3 % (42.0-52.0); Hemoglobin 16.4 g/dL (14.0-18.0); Immature Granulocyte Absolute 0.02 K/mm3 (0.00-0.031); Immature Granulocyte Percent A 0.2 % (0-0.5); Lymphocytes Absolute Auto 0.61 K/mm3 (0.9-3.2); Lymphocytes Percent Auto 7.2 % (18.3-44.2); Mean Corpuscular HGB Conc 33.3 g/dl (32-36); Mean Corpuscular Volume 102.3 fl (80-100); Mean Platelet Volume 9.6 fl (7.4-10.4); Monocytes Absolute Auto 1.1 K/mm3 (0.1-0.6); Monocytes Percent Auto 12.8 % (2.6-8.5); Neutrophils Absolute Auto 6.6 K/mm3 (1.3-6.7); Neutrophils Percent Auto 77.3 % (45.5-73.1); Platelet Count Result 201 k/mm3 (150-375); Red Blood Count 4.82 M/mm3 (4.6-6.20); Red Cell Distribution Width 13.8 % (11.5-14.5); White Blood Count 8.5 K/mm3 (4.5-10.0)
[2023-07-17 15:34] LABS: Iron 143 ug/dL (49-181)
[2023-07-17 15:35] LABS: Anion Gap 12 mmol/L (8-16); Blood Urea Nitrogen 22 mg/dL (9-20); Calcium 9.5 mg/dL (8.4-10.2); Carbon Dioxide 25 mmol/L (22-30); Chloride 102 mmol/L (98-107); Estimated Glomerular Filt Rate > 60; Glucose 92 mg/dL (65-110); Potassium 4.6 mmol/L (3.4-5.0); Sodium 139 mmol/L (137-145)
[2023-07-17 15:43] LABS: Percent Iron Saturation 51 % (20-50)
[2023-07-17 16:40] LABS: Folic Acid > 20.0 ng/mL (2.76->20)
== END 2023-07-17 10:20 | disposition home or self-care (01) ==
LOC: ANHLAB 10:23
PROVIDERS: PCP Family Medicine; Visit Provider Internal Medicine Hematology & Oncology
DX: D64.9 Anemia, unspecified (principal)
CPT/HCPCS: 36415; 80048; 82607; 82728; 82746; 83540; 83550; 85025

== ENCOUNTER → 2023-09-24 15:03 | Outpatient (CLI) | payer MEDICARE, OTHER, SELFPAY ==
--- NOTE | ~2023-09-24 | XR_ITS ---
EXAMINATION: XR hip RT min 2V DATE: 09/24/2023 16:13 INDICATION: Unspecified injury of right hip, initial encounter. Right hip pain. TECHNIQUE: 3 views of right hip were obtained. COMPARISON: None. FINDINGS: Bone alignment is normal. No fracture. There is moderate right hip osteoarthritis. IMPRESSION: 1. Moderate right hip osteoarthritis. Reviewed, dictated and finalized at location E. ERING KILN TENDER
== END ==
PROVIDERS: PCP Family Medicine; Visit Provider Nurse Practitioner Adult Health
DX: S79.911A Unspecified injury of right hip, initial encounter (principal); S79.912A Unspecified injury of left hip, initial encounter; X58.XXXA Exposure to other specified factors, initial encounter; M16.11 Unilateral primary osteoarthritis, right hip
CPT/HCPCS: 73502

== ENCOUNTER 2023-10-01 15:09 | Outpatient (CLI) | payer MEDICARE, OTHER, SELFPAY ==
--- NOTE | ~2023-10-01 | XR_ITS ---
XR hip LT min 2V DATE: 10/01/2023 15:28 INDICATION: Left hip pain. No injury. TECHNIQUE: AP and lateral views COMPARISON: 07/06/2015 left hip FINDINGS: Mild to moderate left hip osteoarthritis, including joint space narrowing and mild spurring of the femoral head. No fracture or dislocation, avascular necrosis or bone destruction of the left hip. Normal alignment at the pubic symphysis and sacroiliac joints. Severe degenerative disc disease at L4-5 and L5-S1, with evidence of lumbar dextroscoliosis. IMPRESSION: Mild left hip osteoarthritis Severe degenerative disc disease at L4-5 and L5-S1 Reviewed, dictated and finalized at location L. ETING SECRETARY
== END 2023-10-01 15:10 ==
PROVIDERS: PCP Family Medicine; Visit Provider Nurse Practitioner Adult Health
DX: M51.36 Other intervertebral disc degeneration, lumbar region (principal); M51.37 Other intervertebral disc degeneration, lumbosacral region
CPT/HCPCS: 73502

== ENCOUNTER 2023-10-06 11:28 | Outpatient (CLI) | payer MEDICARE, OTHER, SELFPAY ==
--- NOTE | ~2023-10-06 | XR_ITS ---
Lumbosacral Spine: AP and lateral views Clinical History: Pain Findings: There is dextroscoliosis of the thoracolumbar spine. There is severe degenerative disc narr owing throughout the lumbar spine. There is moderate to advanced facet arthropathy throughout the lum bar spine. No acute fracture or sublocation evident. The sacroiliac joints are normally outlined. Impression: Dextroscoliosis with diffuse, severe degenerative spondylitic change of the lumbar spine. Reviewed, dictated and finalized at location M. ERCIAL CONSTRUCTION PROJECT MANAGER Impression: Dextroscoliosis with diffuse, severe degenerative spondylitic change of the lum bar spine.
== END 2023-10-06 11:29 ==
PROVIDERS: PCP Nurse Practitioner Adult Health; Visit Provider Nurse Practitioner Adult Health
DX: M54.10 Radiculopathy, site unspecified (principal)
CPT/HCPCS: 72100

== ENCOUNTER 2024-03-10 11:36 | Outpatient (CLI) | payer MEDICARE, OTHER, SELFPAY ==
--- NOTE | ~2024-03-10 | XR_ITS ---
EXAM: XR elbow RT min 3V DATE: 03/10/2024 12:20 HISTORY: M70.21 - Olecranon bursitis, right elbow . COMPARISON: None available. FINDINGS: Normal mineralization. No fracture or dislocation. No lytic or blastic lesion. Mild degene rative change at the elbow joint. Dystrophic calcification in the posterior soft tissues and bilatera l epicondylar soft tissues. No erosion or periosteal change. Mild soft tissue swelling over the olecr anon. IMPRESSION: Degenerative changes. No acute osseous finding in the right elbow. Mild soft tissue swell ing over the olecranon may represent bursitis in the appropriate context. Reviewed, dictated and finalized at location K. IMPRESSION: Degenerative changes. No acute osseous finding in the right elbow. Mild soft tissue swelling over the olecranon may represent bursitis in the appr opriate context.
== END 2024-03-10 11:37 ==
LOC: GOSHIMG 11:38
PROVIDERS: PCP Family Medicine; Visit Provider Orthopaedic Surgery
DX: M70.21 Olecranon bursitis, right elbow (principal); M79.89 Other specified soft tissue disorders
CPT/HCPCS: 73080

== ENCOUNTER 2024-07-22 11:31 | Outpatient (CLI) | payer MEDICARE, OTHER, SELFPAY ==
[2024-07-22 11:49] LABS: Basophils Percent Auto 0.5 % (0.2-1.2); Eosinophils Absolute Auto 0.2 K/mm3 (0-0.3); Eosinophils Percent Auto 1.7 % (0-4.4); Hemoglobin 16.9 g/dL (14.0-18.0); Immature Granulocyte Absolute 0.02 K/mm3 (0.00-0.031); Immature Granulocyte Percent A 0.2 % (0-0.5); Lymphocytes Absolute Auto 0.91 K/mm3 (0.9-3.2); Lymphocytes Percent Auto 10.2 % (18.3-44.2); Mean Corpuscular HGB Conc 33.8 g/dl (32-36); Mean Corpuscular Hemoglobin 35.7 pg (26-34); Mean Corpuscular Volume 105.7 fl (80-100); Mean Platelet Volume 9.6 fl (7.4-10.4); Monocytes Absolute Auto 1.1 K/mm3 (0.1-0.6); Monocytes Percent Auto 12.7 % (2.6-8.5); Neutrophils Absolute Auto 6.6 K/mm3 (1.3-6.7); Neutrophils Percent Auto 74.7 % (45.5-73.1); Platelet Count Result 190 k/mm3 (150-375); Red Blood Count 4.73 M/mm3 (4.6-6.20); Red Cell Distribution Width 12.4 % (11.5-14.5); White Blood Count 8.9 K/mm3 (4.5-10.0)
[2024-07-22 15:09] LABS: Iron 189 ug/dL (49-181)
[2024-07-22 15:10] LABS: Anion Gap 3 mmol/L (4-12); Blood Urea Nitrogen 26 mg/dL (9-20); Calcium 9.4 mg/dL (8.4-10.2); Carbon Dioxide 31 mmol/L (22-30); Chloride 104 mmol/L (98-107); Estimated Glomerular Filt Rate 58; Glucose 73 mg/dL (65-110); Potassium 4.7 mmol/L (3.4-5.0); Sodium 138 mmol/L (137-145)
[2024-07-22 15:23] LABS: Percent Iron Saturation 67 % (20-50)
[2024-07-22 16:15] LABS: Folic Acid > 20.0 ng/mL (2.76->20)
== END 2024-07-22 11:32 | disposition home or self-care (01) ==
PROVIDERS: PCP Family Medicine; Visit Provider Internal Medicine Hematology & Oncology
DX: D64.9 Anemia, unspecified (principal)
CPT/HCPCS: 36415; 80048; 82607; 82728; 82746; 83540; 83550; 85025

== ENCOUNTER 2024-07-25 11:23 | Outpatient (CLI) | payer MEDICARE, OTHER, SELFPAY | END 2024-07-25 11:24 | disposition home or self-care (01) | LOC: ANHLAB 11:26 | PROVIDERS: PCP Family Medicine; Visit Provider Internal Medicine Hematology & Oncology | DX: E83.19 Other disorders of iron metabolism (principal) | CPT/HCPCS: 36415; 81256 ==

== ENCOUNTER 2024-11-18 13:13 | Outpatient (CLI) | payer MEDICARE, OTHER, SELFPAY ==
--- OUTSIDE RECORDS SUMMARY | 2024-11-18 13:16 | XMS_ITS | Encounter Summary ---
Author Organization [facility] Address [address] [place] [address] Care Team Providers Care Gyroscopic Instrument Mechanic Name Role Phone Unavailable Primary Care Provider Unavailabl e Encounter Details Date Type Department Care Team (Late st Contact Info) Description 05/19/2023 Lab Requisition [facility] - DermPath Lab [address] [place] [id number] Shaquille Padilla Jr., MD [address] [place] [address] Social History Tobacco Use Types Packs/Day Years Used Date Smoking Tobacco: Never Assessed Sex and Gender Information Value Date Recorded Sex Assigned at Not on file Gender Identity Not on file Sexual Orientation Not on file documented as of this encounter Plan of Treatment Not on file documented as of this encounter Procedures Procedure Name Priority Date/Time Associated Diagnosis Comments DERMATOPATHOLOGY Routine 05/18/2023 3:33 AM CDT documented in this encounter Results * DERMATOPATHOLOGY (05/18/2023 3:33 AM CDT) Case Report Dermatopathology Report Case: [id number] Authorizing Provider: Shaquille Padilla Jr., MD Collected: 05/18/2023 03:33 AM Ordering Location: [facility] Received: 05/19/2023 11:26 AM Pathologist: Lisa Christenesn MD Specimen: Skin, right central parietal scalp 1:41 PM CDT DERMATOPATHOLOGY LABORATORY Final Diagnosis Specimen A. SKIN, right central parietal scalp: SQUAMOUS CELL CARCINOMA IN SITU, PRESENT AT THE BASE OF THE SPECIMEN (D04.4) (see microscopic description and comment) OVERLYING CUTANEOUS HORN (L85.8) 1:41 PM CDT DERMATOPATHOLOGY LABORATORY Clinical History Squamous Cell Carcinoma vs. Actinic Keratosis vs. Irritated Seborrheic Keratosis. 1:41 PM CDT DERMATOPATHOLOGY LABORATORY Gross Description Specimen A: Received is one formalin filled container labeled with the patient's name and designated right central parietal scalp. The specimen consists of a shave biopsy measuring 5x4x2 mm. Jar 0. 1:41 PM CDT DERMATOPATHOLOGY LABORATORY Microscopic Description Specimen A. SKIN, right central parietal scalp: There is a column of marked compact hyperkeratosis. The epidermis shows parakeratosis, full thickness disorderly maturation of keratinocytes, mitoses at different levels, and dyskeratotic cells. The lesion extends to the base of the biopsy. COMMENT: An invasive squamous cell carcinoma cannot be ruled out. 1:41 PM CDT DERMATOPATHOLOGY LABORATORY Disclaimer An external and internal positive and negative controls are appropriate for the histochemical, immunohistochemical and immunofluorescence stain(s) in this case (if any), except where stated explicitly. The performance characteristics of the stain(s) cited in this report were developed and its performance characteristic determined by the Dermatopathology Laboratory at [facility], directed by Dr. Abril Mclean. These tests need not be, and therefore are not, approved by the [place] Food and Drug Administration. The tests are used for clinical purposes. Billing Codes Specimen Charges Stain Charges 27462 1 1:41 PM CDT DERMATOPATHOLOGY LABORATORY Embedded Images 1:41 PM CDT DERMATOPATHOLOGY LABORATORY Pathology/Cytolo gy TISSUE SPECIMEN FROM SKIN / Unknown 05/18/2023 3:33 AM CDT 05/19/2023 11:26 AM CDT Shaquille Padilla Jr., MD LAB - PATHOLOGY /CYTOLOGY ORDERABLES DERMATOPATHOLOGY LABORATORY [facility] - Department of Dermatology [address] [phone] documented in this encounter Visit Diagnoses Not on filedocumented in this encounter
--- OUTSIDE RECORDS SUMMARY | 2024-11-18 13:16 | XMS_ITS | Clinical Summary ---
Author Organization [facility] Address [address] [place] [address] Care Team Providers Care Home Care Music Therapist Name Role Phone Naif Nava MD Primary Care Provider [phone] Allergies No known active allergies Medications aspirin (ECOTRIN EC) 81 mg Tablet, Delayed Release (E.C.) 09/28/2008 Active carvedilol (COREG) 12.5 mg tablet Take 12.5 mg by mouth. 10/27/2017 Active cetirizine (ZyrTEC) 10 mg tablet Take 10 mg by mouth. Active tamsulosin (FLOMAX) 0.4 mg capsule 0.4 mg. 05/30/2016 Active loperamide (IMODIUM) 2 mg capsule 2 mg. 04/18/2010 Active Vit C-Vit F-Wnbbqc-CoYm-L utein (PRESERVISION LUTEIN) 226 mg-200 unit -5 mg-0.8 mg Capsule Take as directed 12/19/2008 Active zolpidem (AMBIEN) 10 mg tablet 09/20/2018 Active nystatin-triamc inolone (MYCOLOG-II) 100,000-0.1 unit/g-% Cream 04/12/2019 Acti ve benzonatate (TESSALON) 100 mg capsule TAKE 1 CAPSULE BY MOUTH THREE TIMES DAILY NEEDED FOR COUGH 12/09/2021 Active finasteride (PROSCAR) 5 mg tablet 07/22/2021 Active atorvastatin calcium (ATORVASTATIN ORAL) Take 40 mg by mouth daily. 02/11/2022 Active amoxicillin (AMOXIL) 500 mg capsule Take 500 mg by mouth 3 times daily. For 7 days 07/18/2023 Active Active Problems Problem Noted Date Diagnosed Date Macular degeneration 04/09/2020 History of KS (myocardial infarction) 04/09/2020 Folic acid overdose of undetermined intent 11/22 Encounters Date Type Department Care Team Description 11/02/2024 External Device Data [facility] ABSTRACTION Provider, Abstract 10/22/2024 External Device Data [facility] ABSTRACTION Provider, Abstract 10/21/2024 External Device Data [facility] ABSTRACTION Provider, Abstract 10/18/2024 External Device Data [facility] ABSTRACTION Provider, Abstract 09/08/2024 External Device Data [facility] ABSTRACTION Provider, Abstract 08/25/2024 4:30 PM FINANCIAL SERVICES SALES REPRESENTATIVE Telephone Check Up [facility] Oncology and Hematology - [address] [place] [phone] Miller Nichole MD Iron overload (Primary Dx) from Last 3 Months Family History Medical History Relation Name Comments Heart Disease Father Heart Disease Mother Relation Name Status Comments Brother 1 Brother 2 Father Mother Sister Alive Social History Tobacco Use Types Packs/Day Years Used Date Smoking Tobacco: Never Smokeless Tobacco: Never Tobacco Cessation:Counseling Given: Not Answered Alcohol Use Standard Drinks/Week Comments No 0 (1 standard drink = 0.6 oz pur e alcohol) Sex and Gender Information Value Date Recorded Sex Assigned at Not on file Legal Sex Male 3:13 PM CDT Gender Identity Not on file Sexual Orientation Not on file Last Filed Vital Signs Vital Sign Reading Time Taken Comments Blood Pressure 135/85 07/25/2024 10:51 AM FINANCIAL SERVICES SALES REPRESENTATIVE Pulse 61 07/25/2024 10:51 AM FINANCIAL SERVICES SALES REPRESENTATIVE Temperature 36.6 C (97.8 F) 07/25/2024 10:51 AM FINANCIAL SERVICES SALES REPRESENTATIVE Respiratory Rate 15 07/25/2024 10:51 AM FINANCIAL SERVICES SALES REPRESENTATIVE Oxygen Saturation 97% 07/25/2024 10:51 AM FINANCIAL SERVICES SALES REPRESENTATIVE Inhaled Oxygen Concentration - - Weight 81.5 kg (179 lb 9.6 oz) 07/25/2024 10:51 AM FINANCIAL SERVICES SALES REPRESENTATIVE Height 182.9 cm (6') 12/23/2021 1:36 PM CDT Body Mass Index 24.36 12/23/2021 1:36 PM CDT Plan of Treatment Upcoming Encounters Date Type Department Care Team (Late st Contact Info) Description 11/24/2024 2:30 PM CDT Office Visit [facility] Oncology and Hematology - [place] [address] [place] [address] Miller Nichole MD [address] [place] [address] Health Maintenance Due Date Last Done Comments DTAP/TDAP/TD VACCINES (1 - Tdap) 1959 PNEUMOCOCCAL VACCINE 50+ YEARS (1 of 2 - PCV) 04/07/19 60 Traditional Medicare (ACO) Annual Wellness Visit 04/07 ZOSTER VACCINE (1 of 2) 1991 RSV VACCINE (60+ or ) (1 - 1-dose 75+ series) 2016 INFLUENZA VACCINE (#1) 2024 Insurance MEDICARE PART A AND B MEDICARE PART A AND B [facility] CHOICE [id number] Care Teams Home Care Music Therapist Relationship Specialty Start Date End Date Naif Nava MD [address] [place] [address] PCP - General Family Practice 11/05/18
--- OUTSIDE RECORDS SUMMARY | 2024-11-18 13:16 | XMS_ITS | Clinical Summary ---
Author Organization [facility] [address] Address [address] [place] [address] Care Team Providers Care Silviculturist Name Role Phone Naif Nava MD Primary Care Provider Allergies No known active allergies Medications vit C-vit H-kndpfh-hnva-l utein (PRESERVISION LUTEIN) 226 mg-200 unit -5 mg-0.8 mg capsule Take as directed 0 0 9 Active aspirin 81 mg tablet 9 Active zolpidem (AMBIEN) 10 mg tabletIndicatio ns:Sleep-Onset Insomnia Take 0.5 tablets (5 mg total) by mouth nightly as needed (insomnia) 30 tablet 9 Active cholecalciferol 25 mcg (1,000 unit) tablet Take 1 tablet (1,000 Units total) by mouth daily Active hydrOXYzine (ATARAX) 10 mg tablet Take 1 tablet (10 mg total) by mouth every 8 (eight) hours as needed 5 Active atorvastatin (LIPITOR) 40 mg tabletIndicatio ns: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,Hyperc holesteremia Take 1 tablet (40 mg total) by mouth daily 90 tablet 3 5 Active carvediloL (COREG) 12.5 mg tablet Take 1 tablet (12.5 mg total) by mouth 2 (two) times a day with meals 180 tablet 3 5 Active atorvastatin (LIPITOR) 40 mg tabletIndicatio ns: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,Hyperc holesteremia Take 1 tablet (40 mg total) by mouth daily 90 tablet 2 4 11/03/19 Discontinu ed(Reorder ) carvediloL (COREG) 12.5 mg tablet Take 1 tablet (12.5 mg total) by mouth 2 (two) times a day with meals 180 tablet 2 4 11/11/19 25 Discontinu ed(Reorder ) atorvastatin (LIPITOR) 40 mg tabletIndicatio ns: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,Hyperc holesteremia Take 1 tablet (40 mg total) by mouth daily 90 tablet 2 5 11/11/19 Discontinu ed(Reorder ) Active Problems Problem Noted Date Diagnosed Date Hypercholesteremia 07/04/2019 Bilateral carotid bruits 06/25/2018 Osteoarthritis of multiple joints 06/21/2018 Idiopathic peripheral neuropathy 06/21/2018 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 without angina pectoris 06/15/2017 Presence of stent in coronary artery 05/30/2016 Overview (11/20/2016): Stented coronary artery Old myocardial infarction 05/30/2016 Overview (11/20/2016): Old [place] (myocardial infarction) Resolved Problems Problem Noted Date Diagnosed Date Resolved Date Tingling of left upper extremity 06/21/2018 07/04/2019 Dyslipidemia 06/15/2017 07/04/2019 Encounters Date Type Department Care Team Description 11/10/2024 3:00 PM CDT Office Visit [facility] Cardiology [address] [place] [address] Wang Howe MD 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 (Primary Dx); Hypercholesteremia; Presence of stent in coronary artery; Old myocardial infarction from Last 3 Months Surgical History Surgery Date Site/Laterality Comments OTHER SURGICAL HISTORY B/L knee replacement OTHER SURGICAL HISTORY B/L inguinal hernia repair CORONARY STENT PLACEMENT Coronary Stent Placement Medical History Medical History Date Comments Osteoarthritis osteoarthritis Hypercholesterolemia High choles terol Cardiovascular disease Coronary Artery Disease Basal cell carcinoma of skin of nose 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 - (Added by TW Conv) Family History Medical History Relation Name Comments Heart failure Father 2 Congestive Hea rt Failure; Cause of : Congestive Heart Failure Heart failure Mother 2 Congestive Hea rt Failure; Cause of : Congestive Heart Failure Relation Name Status Comments Father 1 Father 2 Mother 1 Mother 2 Social History Tobacco Use Types Packs/Day Years Used Date Smoking Tobacco: Never Smokeless Tobacco: Never Tobacco Cessation:Counseling Given: Not Answered Alcohol Use Standard Drinks/Week Comments No 0 (1 standard drink = 0.6 oz pur e alcohol) Sex and Gender Information Value Date Recorded Sex Assigned at Not on file 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 Gender Identity Not on file Sexual Orientation Not on file Obstetrics History Last Filed Vital Signs Vital Sign Reading Time Taken Comments Blood Pressure 122/64 11/10/2024 3:01 PM CDT Pulse 67 11/10/2024 3:01 PM CDT Temperature - - Respiratory Rate - - Oxygen Saturation 96% 11/10/2024 3:01 PM CDT Inhaled Oxygen Concentration - - Weight 80.3 kg (177 lb) 11/10/2024 3:01 PM CDT Height 185.4 cm (6' 1 ) 11/10/2024 3:01 PM CDT Body Mass Index 23.35 11/10/2024 3:01 PM CDT Plan of Treatment Health Maintenance Due Date Last Done Comments Depression Screening 1941 Fall Risk Assessment 1941 DTaP/Tdap/Td Vaccine (1 - Tdap) 1952 Hepatitis B Screening 1959 Pneumococcal vaccine 65+ (1 of 1 - PCV) 1991 Zoster Vaccine (1 of 2) 1991 Well Visit 65+ 2006 Influenza Vaccine (#1) 2024 9, 05/09/2018, 05/17/2017 Insurance MEDICARE [facility] H[facility]/PPO Address: [address] [address] [place] [address] MEDICARE [employer] [address] MEDICARE [facility] HMO/PPO Address: [address] [address] [place] [address] Care Teams Silviculturist Relationship Specialty Start Date End Date Naif Nava MD PCP - General 02/24/14
--- OUTSIDE RECORDS SUMMARY | 2024-11-18 13:16 | XMS_ITS | Clinical Summary ---
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 Gender Identity Not on file Sexual Orientation Not on file Plan of Treatment Health Maintenance Due Date Last Done Comments DTaP, Tdap and Td Vaccines ( 1 - Tdap) 1960 Zoster Vaccines (1 of 2) 1991 Pneumococcal Vaccine: 65+ Ye ars (1 of 1 - PCV) 2006 RSV Immunization or 60+ Years (1 - 1-dose 75+ series) 2016 COVID-19 Vaccine ( - 2023-2 5 season) 2024 Meningococcal B Vaccine Aged Out No l onger eligible based on patient's age to complete this topic Meningococcal Vaccine Aged Out No rema varsha eligible based on patient's age to complete this topic RSV Immunizations Under 20 Months Aged Out No longer eligible based on patient's age to complete this topic Advance Directives Documents on File Type Date Recorded Patient Bung Dropper Expl anation Advance Directives and Living Will 10/27/2007 12:00 AM POWER OF GEOGRAPHIC INFORMATION SYSTEMS ENGINEER FO R HEALTH CARE Advance Directives and Living Will 10/27/2007 12:00 AM POWER OF GEOGRAPHIC INFORMATION SYSTEMS ENGINEER FO R HEALTH CARE
--- OUTSIDE RECORDS SUMMARY | 2024-11-18 13:16 | XMS_ITS | Clinical Summary ---
Author Organization [facility] Address [address] [place] [address] Care Team Providers Care Broadcast Technician Name Role Phone Unavailable Primary Care Provider Unavailabl e Source Comments [facility],non-owned Affiliates and Associated Physician Practices is amultiple site organization consisting of ambulatory clinics and hospital sitesin [place], [place], [place] and [place]. This disclosure is being madepursuant to the Care Everywhere program and may not contain all information available regarding this patient. Last updated 18.[facility] Social History Tobacco Use Types Packs/Day Years Used Date Smoking Tobacco: Never Assessed Sex and Gender Information Value Date Recorded Sex Assigned at Not on file Gender Identity Not on file Sexual Orientation Not on file Plan of Treatment Health Maintenance Due Date Last Done Comments MEDICARE AWV 12 MONTHS 1941 DTAP/TDAP/TD VACCINES (1 - Tdap) 1960 PNEUMOCOCCAL VACCINE 50+ (1 of 1 - PCV) 1991 ZOSTER VACCINE (1 of 2) 1991 Respiratory Syncytial Virus (RSV) Vaccine Pt: or over 60 yrs (1 - 1-dose 75+ series) 2016 COVID-19 VACCINE ( - 2023-2 5 season) 2024 INFLUENZA VACCINE (#1) 2024 DEPRESSION SCREENING 08/17/2024 HEPATITIS B VACCINE Aged Out No longe r eligible based on patient's age to complete this topic HIB VACCINE Aged Out No longer eligi ble based on patient's age to complete this topic HPV VACCINE Aged Out No longer eligi ble based on patient's age to complete this topic MENINGOCOCCAL (Group B) VACC INE SHARED DECISION-MAKING Aged Out No longer eligibl e based on patient's age to complete this topic MENINGOCOCCAL GROUPS A/C/Y/W VACCINE Aged Out No longer eligible b ased on patient's age to complete this topic
--- OUTSIDE RECORDS SUMMARY | 2024-11-18 13:16 | XMS_ITS | Referral Summary ---
Author Organization [facility] [address] [facility] [address] Address [address] [place] [address] Care Team Providers Care Paste Up Copy Camera Operator Name Role Phone Naif Nava MD Primary Care Provider Encounters Date Type Department Care Team Description 11/10/2024 3:00 PM CDT Office Visit [facility] Cardiology [address] [place] [address] Wang Howe MD Coronary artery disease involving [place] coronary artery of [place] heart without angina pectoris (Primary Dx); Hypercholesteremia; Presence of stent in coronary artery; Old myocardial infarction from Last 3 Months Allergies No known active allergies Medications vit C-vit M-duvnrw-vnka-l utein (PRESERVISION LUTEIN) 226 mg-200 unit -5 [...] 40 mg tabletIndicatio ns:Coronary artery disease involving [place] coronary artery of [place] heart without angina pectoris,Hyperc holesteremia Take 1 tablet (40 mg total) by mouth daily 90 tablet 3 5 Active carvediloL (COREG) 12.5 mg tablet Take 1 tablet (12.5 mg total) by mouth 2 (two) times a day with meals 180 tablet 3 5 Active atorvastatin (LIPITOR) 40 mg tabletIndicatio ns:Coronary artery disease involving [place] coronary artery of [place] heart without angina pectoris,Hyperc holesteremia Take 1 tablet (40 mg total) by mouth daily 90 tablet 2 4 11/03/19 25 Discontinu ed(Reorder ) carvediloL (COREG) 12.5 mg tablet Take 1 tablet (12.5 mg total) by mouth 2 (two) times a day with meals 180 tablet 2 4 11/11/19 25 Discontinu ed(Reorder ) atorvastatin (LIPITOR) 40 mg tabletIndicatio ns:Coronary artery disease involving [place] coronary artery of [place] heart without angina pectoris,Hyperc holesteremia Take 1 tablet (40 mg total) by mouth daily 90 tablet 2 5 11/11/19 25 Discontinu ed(Reorder ) Active Problems Problem Noted Date Diagnosed Date Hypercholesteremia 07/04/2019 Bilateral carotid bruits 06/25/2018 Osteoarthritis of multiple joints 06/21/2018 Idiopathic peripheral neuropathy 06/21/2018 Coronary artery disease invo lving [place] coronary artery of [place] heart without angina pectoris 06/15/2017 Presence of stent in coronary artery 05/30/2016 Overview (11/20/2016): Stented coronary artery Old myocardial infarction 05/30/2016 Overview (11/20/2016): Old [place] (myocardial infarction) Resolved Problems Problem Noted Date Diagnosed Date Resolved Date Tingling of left upper extremity 06/21/2018 07/04/2019 Dyslipidemia 06/15/2017 07/04/2019 Social History Tobacco Use Types Packs/Day Years Used Date Smoking Tobacco: Never Smokeless Tobacco: Never Tobacco Cessation:Counseling Given: Not Answered Alcohol Use Standard Drinks/Week Comments No 0 (1 standard drink = 0.6 oz pur e alcohol) Sex and Gender Information Value Date Recorded Sex Assigned at Not on file 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
--- OUTSIDE RECORDS SUMMARY | 2024-11-18 13:16 | XMS_ITS | Encounter Summary ---
Author Organization [facility] Address [address] [facility] [place] [address] Care Team Providers Care Parts Assembler Name Role Phone Unavailable Primary Care Provider Unavailabl e Encounter Details Date Type Department Care Team (Late st Contact Info) Description 08/27/2020 Lab Requisition [facility] DermPath Lab [address] [facility], [place] [address] Shaquille Padilla Jr., MD [address] [facility] [address] [place] [address] Social History Tobacco Use Types Packs/Day Years Used Date Smoking Tobacco: Never Assessed Sex and Gender Information Value Date Recorded Sex Assigned at Not on file Gender Identity Not on file Sexual Orientation Not on file documented as of this encounter Plan of Treatment Not on file documented as of this encounter Procedures Procedure Name Priority Date/Time Associated Diagnosis Comments DERMATOPATHOLOGY Routine 08/27/2020 12:0 0 AM SLATE MIXER documented in this encounter Results * DERMATOPATHOLOGY (08/27/2020 12:00 AM SLATE MIXER) Case Report Dermatopathology Report Case: [id number] Authorizing Provider: Shaquille Padilla Jr., MD Collected: 08/27/2020 12:00 AM Ordering Location: [facility] DermPath Lab Received: 08/27/2020 12:28 PM Pathologist: Edwin Mclean MD Specimen: Skin, left superior medial malar cheek 1:28 PM [facility] DERMAT[facility]ORATORY Final Diagnosis Specimen A. SKIN, left superior medial malar cheek: ACTINIC KERATOSIS; EXTENDING TO THE BASE OF THE SPECIMEN (L57.0) (see microscopic description and comment) 1:28 PM [facility] Clinical History Basal cell carcinoma vs irritated seborrheic keratosis vs actinic keratosis vs squamous cell carcinoma. . 1:28 PM [facility] DERMATOPATHOLOGY LABORATORY Gross Description Specimen A: Received is one formalin filled container labeled with the patient's name and designated left superior medial malar cheek. The specimen consists of a shave biopsy measuring [id number]. Jar 0. 1:28 PM [facility] DERMATOPATHOLOGY LABORATORY Microscopic Description Specimen A. SKIN, left superior medial malar cheek: There is focal parakeratosis. The lower half of the epidermis shows disorderly maturation of keratinocytes with nuclear pleomorphism. This process extends to the base of the specimen. COMMENT: A squamous cell carcinoma cannot be ruled out. Additional deeper sections were obtained and reviewed. 1:28 PM [facility] DERMATOPATHOLOGY LABORATORY Disclaimer An external and internal positive and negative controls are appropriate for the histochemical, immunohistochemical and immunofluorescence stain(s) in this case (if any), except where stated explicitly. The performance characteristics of the stain(s) cited in this report were developed and its performance characteristic determined by the Dermatopathology Laboratory at [facility], directed by Dr. Abril Mclean. These tests need not be, and therefore are not, approved by the [place] Food and Drug Administration. The tests are used for clinical purposes. Billing Codes Specimen Charges Stain Charges 29401 1 1 1:28 PM [facility] DERMATOPATHOLOGY LABORATORY Embedded Images 1:28 PM [facility] DERMATOPATHOLOGY LABORATORY Pathology/Cytolog y TISSUE SPECIMEN FROM SKIN / Unknown 08/27/2020 08/27/2020 12:28 PM [facility] Shaquille Padilla Jr., MD LAB - PATHOLOGY /CYTOLOGY ORDERABLES DERMATOPATHOLOGY LABORATORY [facility] - Department of Dermatology [address] [place] [address], [facility] [phone] documented in this encounter Visit Diagnoses Not on filedocumented in this encounter
--- OUTSIDE RECORDS SUMMARY | 2024-11-18 13:16 | XMS_ITS | Continuity of Care Document ---
Author Organization [facility] Address [address] [place] [address] [place] [address] Phone Care Team Providers Care Major Gifts Officer Name Role Phone [facility] Unavailable Unavail able Lance Talley Unavailable Unavailable Procedures Procedure Date Progressive Lens, Plastic Frames Deluxe Tint Photochromatic, Plastic Tax - Medical Advance Directives Directive Yes / No Effective Date File Name No Information Encounters Encounter Description Practice Location Reason(s) For Visit Diagnoses Date Provider Providers Copied on Encounter [facility], [id number] [place] [address] [address], [place], [place], [id number], [place] tel:[phone] SEC [facility] [place] No Information 8-200 8 [facility] [address] [facility], [address], [place], [place], [id number] , [place]. tel:[phone] Consulting Provider: Lance Talley, [address] [facility], [place], [address]. tel:[phone] Family History Family Member Type Diagnosis Age At Onset No Information Payers Payer name Insurance type Covered green party ID Authoriza tion(s) No Information Social History [...]
[2024-11-18 13:28] LABS: Hematocrit 42.5 % (42.0-52.0); Mean Corpuscular HGB Conc 32.9 g/dl (32-36); Mean Corpuscular Hemoglobin 34.6 pg (26-34); Mean Corpuscular Volume 104.9 fl (80-100); Mean Platelet Volume 9.2 fl (7.4-10.4); Platelet Count Result 318 k/mm3 (150-375); Red Blood Count 4.05 M/mm3 (4.6-6.20); Red Cell Distribution Width 13.6 % (11.5-14.5); White Blood Count 16.8 K/mm3 (4.5-10.0)
[2024-11-18 14:30] LABS: Iron 59 ug/dL (49-181)
[2024-11-18 14:41] LABS: Percent Iron Saturation 25 % (20-50)
== END 2024-11-18 13:14 | disposition home or self-care (01) ==
LOC: ANHLAB 13:14
PROVIDERS: PCP Family Medicine; Visit Provider Internal Medicine Hematology & Oncology
DX: E83.19 Other disorders of iron metabolism (principal)
CPT/HCPCS: 36415; 82728; 83540; 83550; 85027

== ENCOUNTER 2024-11-28 12:46 | Outpatient (CLI) | payer MEDICARE, OTHER, SELFPAY ==
--- OUTSIDE RECORDS SUMMARY | 2024-11-28 13:54 | XMS_ITS | Clinical Summary ---
Author Organization [facility] Address [address] [place] [address] Care Team Providers Care Appliance Assembler Name Role Phone Naif Nava MD Primary Care Provider [phone] Allergies No known active allergies Medications aspirin (ECOTRIN EC) 81 mg Tablet, Delayed Release (E.C.) 9 Active carvedilol (COREG) 12.5 mg tablet Take 12.5 mg by mouth. 8 Active cetirizine (ZyrTEC) 10 mg tablet Take 10 mg by mouth. Active tamsulosin (FLOMAX) 0.4 mg capsule 0.4 mg. 6 Active loperamide (IMODIUM) 2 mg capsule 2 mg. 0 Active Vit C-Vit A-Hysscq-WiIo- Lutein (PRESERVISION LUTEIN) 226 mg-200 unit -5 mg-0.8 mg Capsule Take as directed 9 Active zolpidem (AMBIEN) 10 mg tablet 9 Active nystatin-triam cinolone (MYCOLOG-II) 100,000-0.1 unit/g-% Cream 9 Active benzonatate (TESSALON) 100 mg capsule TAKE 1 CAPSULE BY MOUTH THREE TIMES DAILY NEEDED FOR COUGH 2 Active finasteride (PROSCAR) 5 mg tablet 1 Active atorvastatin calcium (ATORVASTATIN ORAL) Take 40 mg by mouth daily. 2 Active amoxicillin (AMOXIL) 500 mg capsule Take 500 mg by mouth 3 times daily. For 7 days 3 Active predniSONE (DELTASONE) 10 mg tablet Take 10 mg by mouth see administration instructions. Active Active Problems Problem Noted Date Diagnosed Date Macular degeneration 04/09/2020 History of [place] (myocardial infarction) 04/09/2020 Folic acid overdose of undetermined intent 11/22 Encounters Date Type Department Care Team Description 11/24/2024 2:30 PM CDT Office Visit [facility] Oncology and Hematology [facility] [address] [place] [address] Miller Nichole MD Iron overload (Primary Dx); Chronic anemia 11/22/2024 Orders Only [facility] Oncology and [facility] [address] [place] [address] Miller Nichole MD 11/02/2024 External Device Data STL ABSTRACTION Provider, Abstract 10/22/2024 External Device Data STL ABSTRACTION Provider, Abstract 10/21/2024 External Device Data STL ABSTRACTION Provider, Abstract 10/18/2024 External Device Data STL ABSTRACTION Provider, Abstract 09/08/2024 External Device Data STL ABSTRACTION Provider, Abstract from Last 3 Months Family History Medical [...] Sign Reading Time Taken Comments Blood Pressure 125/73 11/24/2024 2:24 PM CDT Pulse 66 11/24/2024 2:24 PM CDT Temperature 36.5 C (97.7 F) 11/24/2024 2:24 PM CDT Respiratory Rate 15 11/24/2024 2:24 PM CDT Oxygen Saturation 97% 11/24/2024 2:24 PM CDT Inhaled Oxygen Concentration - - Weight 78.9 kg (174 lb) 11/24/2024 2:24 PM CDT Height 182.9 cm (6') 12/23/2021 1:36 PM CDT Body Mass Index 23.6 12/23/2021 1:36 PM CDT Plan of Treatment Upcoming Encounters Date Type Department Care Team (Late st Contact Info) Description 05/26/2025 12:00 PM CDT Office Visit [facility] Oncology and Hematology - [place] [address] [facility] [address] [place] [address] Miller Nichole MD [address] [facility] [address] [place] [address] Health Maintenance Due Date Last Done Comments DTAP/TDAP/TD VACCINES (1 - Tdap) 1960 Traditional Medicare (ACO) Annual Wellness Visit 04/07 PNEUMOCOCCAL VACCINE 50+ YEARS (1 of 1 - PCV) 04/07/19 91 ZOSTER VACCINE (1 of 2) 1991 RSV VACCINE (60+ or ) (1 - 1-dose 75+ series) 2016 INFLUENZA VACCINE (#1) 2024 Procedures Procedure Name Priority Date/Time Associated Diagnosis Comments IRON, TIBC, AND PERCENT SATURATION Routine 11/18/2024 11:58 AM CDT CBC WITH AUTODIFFERENTIAL Routine 2024 11:54 AM CDT from Last 3 Months Results * IRON, TIBC, AND PERCENT SATURATION (11/18/2024 11:58 AM CDT) Blood Miller Nichole MD CHEMISTRY ORDERABLES Final Resu lt * CBC WITH AUTODIFFERENTIAL (11/18/2024 11:54 AM CDT) Blood Miller Nichole MD HEMATOLOGY ORDERABLES Final Res ult from Last 3 Months Insurance MEDICARE PART A AND B MEDICARE PART A AND B [facility] CHOICE [id number] Care Teams Appliance Assembler Relationship Specialty Start Date End Date Naif Nava MD [address] [place] [address] PCP - General Family Practice 11/05/18
--- OUTSIDE RECORDS SUMMARY | 2024-11-28 13:54 | XMS_ITS | Continuity of Care Document ---
Author Organization [facility] Address [address] [place] [address] [place] [address] Phone Care Team Providers Care Rn Endoscopy Name Role Phone [facility] Unavailable Unavail able Lance Talley Unavailable Unavailable Procedures Procedure Date Progressive Lens, Plastic Frames Deluxe Tint Photochromatic, Plastic Tax - Medical Advance Directives Directive Yes / No Effective Date File Name No Information Encounters Encounter Description Practice Location Reason(s) For Visit Diagnoses Date Provider Providers Copied on Encounter [facility], [address] [place] [address] [address], [place], [place], [id number], [place] tel:[phone] SEC [facility] No Information 8-200 8 [facility] [address] [facility], [address], [place], [place], [id number] , [place]. tel:[phone] Consulting Provider: Lance Talley, [address] [facility], [place], [address]. tel:[phone] Family History Family Member Type Diagnosis Age At Onset No Information Payers Payer name Insurance type Covered alliance party ID Authoriza tion(s) No Information Social [...]
--- OUTSIDE RECORDS SUMMARY | 2024-11-28 13:54 | XMS_ITS | Encounter Summary ---
Author Organization [facility] Address [address] [place] [address] Care Team Providers Care Pole Incisor Operator Name Role Phone Unavailable Primary Care Provider Unavailabl e Encounter Details Date Type Department Care Team (Late st Contact Info) Description 08/27/2020 Lab Requisition 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 DermPath Lab Received: 08/27/2020 12:28 PM Pathologist: Edwin Mclean MD Specimen: Skin, left superior medial malar cheek 1:28 PM HOT TAMALE MAN DERMATOPATHOLOGY LABORATORY Final Diagnosis Specimen A. SKIN, left superior medial malar cheek: ACTINIC KERATOSIS; EXTENDING TO THE BASE OF THE SPECIMEN (L57.0) (see microscopic description and comment) 1:28 PM HOT TAMALE MAN DERMATOPATHOLOGY LABORATORY Clinical History Basal cell carcinoma vs irritated seborrheic keratosis vs actinic keratosis vs squamous cell carcinoma. . 1:28 PM [facility] DERMATOPATHOLOGY LABORATORY Gross Description Specimen A: Received is one formalin filled container labeled with the patient's name and designated left superior medial malar cheek. The specimen consists of a shave biopsy measuring [id number]. Jar 0. 1:28 PM [facility] DERMATOPATHOLOGY LABORATORY Microscopic Description Specimen A. SKIN, left superior medial malar cheek: There is focal parakeratosis. The lower half of the epidermis shows disorderly maturation of keratinocytes with nuclear pleomorphism. This process extends to the base of the specimen. COMMENT: A squamous cell carcinoma cannot be ruled out. Additional deeper sections were obtained and reviewed. 1:28 PM [facility] DERMATOPATHOLOGY LABORATORY Disclaimer An external and internal positive and negative controls are appropriate for the histochemical, immunohistochemical and immunofluorescence stain(s) in this case (if any), except where stated explicitly. The performance characteristics of the stain(s) cited in this report were developed and its performance characteristic determined by the Dermatopathology Laboratory at [facility], directed by Dr. Abril Mclean. These tests need not be, and therefore are not, approved by the [place] Food and Drug Administration. The tests are used for clinical purposes. Billing Codes Specimen Charges Stain Charges 09918 1 1:28 PM [facility] DERMATOPATHOLOGY LABORATORY Embedded Images 1:28 PM [facility] DERMATOPATHOLOGY LABORATORY Pathology/Cytolog y TISSUE SPECIMEN FROM SKIN / Unknown 08/27/2020 08/27/2020 12:28 PM [facility] Shaquille Padilla Jr., MD LAB - PATHOLOGY/CYTOLOG Y ORDERABLES Final Result DERMATOPATHOLOGY LABORATORY [facility] - Department of Dermatology [address], [address] [phone] documented in this encounter Visit Diagnoses Not on filedocumented in this encounter
--- OUTSIDE RECORDS SUMMARY | 2024-11-28 13:54 | XMS_ITS | Referral Summary ---
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 (Primary Dx); Hypercholesteremia; Presence of stent in coronary artery; Old myocardial infarction from Last 3 Months Allergies No known active allergies Medications vit C-vit K-bpsfua-oihb-l utein (PRESERVISION LUTEIN) 226 mg-200 unit -5 [...] 40 mg tabletIndicatio ns: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,Hyperc holesteremia Take 1 tablet (40 mg total) by mouth daily 90 tablet 3 5 Active carvediloL (COREG) 12.5 mg tablet Take 1 tablet (12.5 mg total) by mouth 2 (two) times a day with meals 180 tablet 3 5 Active atorvastatin (LIPITOR) 40 mg tabletIndicatio ns: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,Hyperc holesteremia Take 1 tablet (40 mg total) by mouth daily 90 tablet 2 4 11/03/19 25 Discontinu ed(Reorder ) carvediloL (COREG) 12.5 mg tablet Take 1 tablet (12.5 mg total) by mouth 2 (two) times a day with meals 180 tablet 2 4 11/11/19 25 Discontinu ed(Reorder ) atorvastatin (LIPITOR) 40 mg tabletIndicatio ns: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,Hyperc holesteremia Take 1 tablet (40 mg total) by mouth daily 90 tablet 2 5 11/11/19 25 Discontinu ed(Reorder ) Active Problems Problem Noted Date Diagnosed Date Hypercholesteremia 07/04/2019 Bilateral carotid bruits 06/25/2018 Osteoarthritis of multiple joints 06/21/2018 Idiopathic peripheral neuropathy 06/21/2018 Coronary artery disease invo lving klawock coronary artery of klawock heart without angina pectoris 06/15/2017 Presence of stent in coronary artery 05/30/2016 Overview (11/20/2016): Stented coronary artery Old myocardial infarction 05/30/2016 Overview (11/20/2016): Old [place] (myocardial infarction) Resolved Problems Problem Noted Date [...] on file 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
--- OUTSIDE RECORDS SUMMARY | 2024-11-28 13:54 | XMS_ITS | Clinical Summary ---
Author Organization [facility] [address] Address [address] [place] [address] Care Team Providers Care Budget Examiner Name Role Phone Naif Nava MD Primary Care Provider Allergies No known active allergies Medications vit C-vit Q-diifij-cegu-l utein (PRESERVISION LUTEIN) 226 mg-200 unit -5 [...] 40 mg tabletIndicatio ns:Coronary artery disease involving tolowa dee-ni' coronary artery of tolowa dee-ni' heart without angina pectoris,Hyperc holesteremia Take 1 tablet (40 mg total) by mouth daily 90 tablet 3 5 Active carvediloL (COREG) 12.5 mg tablet Take 1 tablet (12.5 mg total) by mouth 2 (two) times a day with meals 180 tablet 3 5 Active atorvastatin (LIPITOR) 40 mg tabletIndicatio ns:Coronary artery disease involving tolowa dee-ni' coronary artery of tolowa dee-ni' heart without angina pectoris,Hyperc holesteremia Take 1 tablet (40 mg total) by mouth daily 90 tablet 2 4 11/03/19 Discontinu ed(Reorder ) carvediloL (COREG) 12.5 mg tablet Take 1 tablet (12.5 mg total) by mouth 2 (two) times a day with meals 180 tablet 2 4 11/11/19 25 Discontinu ed(Reorder ) atorvastatin (LIPITOR) 40 mg tabletIndicatio ns:Coronary artery disease involving tolowa dee-ni' coronary artery of tolowa dee-ni' heart without angina pectoris,Hyperc holesteremia Take 1 tablet (40 mg total) by mouth daily 90 tablet 2 5 11/11/19 Discontinu ed(Reorder ) Active Problems Problem Noted Date Diagnosed Date Hypercholesteremia 07/04/2019 Bilateral carotid bruits 06/25/2018 Osteoarthritis of multiple joints 06/21/2018 Idiopathic peripheral neuropathy 06/21/2018 Coronary artery disease invo lving tolowa dee-ni' coronary artery of tolowa dee-ni' heart without angina pectoris 06/15/2017 Presence of stent in coronary artery 05/30/2016 Overview (11/20/2016): Stented coronary artery Old myocardial infarction 05/30/2016 Overview (11/20/2016): Old [place] (myocardial infarction) Resolved Problems Problem Noted Date Diagnosed Date Resolved Date Tingling of left upper extremity 06/21/2018 07/04/2019 Dyslipidemia 06/15/2017 07/04/2019 Encounters Date Type Department Care Team Description 11/10/2024 3:00 PM CDT Office Visit 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
--- OUTSIDE RECORDS SUMMARY | 2024-11-28 13:54 | XMS_ITS | Clinical Summary ---
Author Organization [facility] Address [address] [facility] [place] [address] Care Team Providers Care Registered Art Therapist Name Role Phone Unavailable Primary Care Provider Unavailabl e Source Comments [facility],non-owned Affiliates and Associated Physician Practices is amultiple site organization consisting of ambulatory clinics and hospital sitesin [place], [place], [place] and [place]. This disclosure is being madepursuant to the Care Everywhere program and may not contain all information available regarding this patient. 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
--- OUTSIDE RECORDS SUMMARY | 2024-11-28 13:54 | XMS_ITS | Encounter Summary ---
Author Organization [facility] Address [address] [facility] [place] [address] Care Team Providers Care Pearl Maker Name Role Phone Unavailable Primary Care Provider Unavailabl e Encounter Details Date Type Department Care Team (Late st Contact Info) Description 05/19/2023 Lab Requisition [facility] - DermPath Lab [address] [facility] [address] [facility] [facility] [place] [id number] Shaquille Padilla Jr., MD 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 Gender Identity Not on file Sexual Orientation Not on file documented as of this encounter Plan of Treatment Not on file documented as of this encounter Procedures Procedure Name Priority Date/Time Associated Diagnosis Comments DERMATOPATHOLOGY Routine 05/18/2023 3:33 AM CDT documented in this encounter Results * DERMATOPATHOLOGY (05/18/2023 3:33 AM CDT) Case Report Dermatopathology Report Case: [id number] Authorizing Provider: Shaquille Padilla Jr., MD Collected: 05/18/2023 03:33 AM Ordering Location: [facility] DermPath Lab Received: 05/19/2023 11:26 AM Pathologist: Lisa Christensen MD Specimen: Skin, right central parietal scalp 1:41 PM CDT DERMATOPATHOLOGY LABORATORY Final Diagnosis Specimen A. SKIN, right central parietal scalp: SQUAMOUS CELL CARCINOMA IN SITU, PRESENT AT THE BASE OF THE SPECIMEN (D04.4) (see microscopic description and comment) OVERLYING CUTANEOUS HORN (L85.8) 1:41 PM T DERMATOPATHOLOGY LABORATORY Clinical History Squamous Cell Carcinoma vs. Actinic Keratosis vs. Irritated Seborrheic Keratosis. 1:41 PM T DERMATOPATHOLOGY LABORATORY Gross Description Specimen A: Received is one formalin filled container labeled with the patient's name and designated right central parietal scalp. The specimen consists of a shave biopsy measuring 5x4x2 mm. Jar 0. 1:41 PM T DERMATOPATHOLOGY LABORATORY Microscopic Description Specimen A. SKIN, right central parietal scalp: There is a column of marked compact hyperkeratosis. The epidermis shows parakeratosis, full thickness disorderly maturation of keratinocytes, mitoses at different levels, and dyskeratotic cells. The lesion extends to the base of the biopsy. COMMENT: An invasive squamous cell carcinoma cannot be ruled out. 1:41 PM T DERMATOPATHOLOGY LABORATORY Disclaimer An external and internal positive and negative controls are appropriate for the histochemical, immunohistochemical and immunofluorescence stain(s) in this case (if any), except where stated explicitly. The performance characteristics of the stain(s) cited in this report were developed and its performance characteristic determined by the Dermatopathology Laboratory at [facility], directed by Dr. Abril Mclean. These tests need not be, and therefore are not, approved by the [place] Food and Drug Administration. The tests are used for clinical purposes. Billing Codes Specimen Charges Stain Charges 15367 1 1:41 PM CDT DERMATOPATHOLOGY LABORATORY Embedded Images 1:41 PM CDT DERMATOPATHOLOGY LABORATORY Pathology/Cytolo gy TISSUE SPECIMEN FROM SKIN / Unknown 05/18/2023 3:33 AM CDT 05/19/2023 11:26 AM CDT us Shaquille Padilla Jr., MD LAB - PATHOLOGY/CYTOLOG Y ORDERABLES Final Result DERMATOPATHOLOGY LABORATORY [facility] - Department of Dermatology [address] [phone] documented in this encounter Visit Diagnoses Not on filedocumented in this encounter
== END 2024-11-28 12:47 | disposition home or self-care (01) ==
LOC: ANHAUDIO 12:47
PROVIDERS: PCP Family Medicine; Visit Provider Nurse Practitioner Family
DX: H90.3 Sensorineural hearing loss, bilateral (principal)
CPT/HCPCS: 92557; 92567

== ENCOUNTER 2025-05-18 11:27 | Outpatient (CLI) | payer MEDICARE, OTHER, SELFPAY ==
--- OUTSIDE RECORDS SUMMARY | 2008-01-12 10:40 | XMS_ITS | Continuity of Care Document ---
Author Organization [facility] [place] Address [address] [place] [address] [place] [address] Phone Care Team Providers Care Director Of Graduate Medical Education Name Role Phone [facility] Unavailable Unavail able Lance Talley Unavailable Unavailable Procedures Procedure Date Progressive Lens, Plastic Frames Deluxe Tint Photochromatic, Plastic Tax - Medical Advance Directives Directive Yes / No Effective Date File Name No Information Encounters Encounter Description Practice Location Reason(s) For Visit Diagnoses Date Provider Providers Copied on Encounter [facility], [id number] [place] [address] [address], [place], [place], [id number], [place] tel:[phone] SEC [facility] No Information 8-200 8 [facility] [address] [facility], [address], [place], [place], [id number] , [place]. tel:[phone] Consulting Provider: Lance Talley, [address] [facility], [place], [address]. tel:[phone] Family History Family Member Type Diagnosis Age At Onset No Information Payers Payer name Insurance type Covered republican ID Authoriza tion(s) No Information Social History Type Description Quantity Date Captured Comments Sex Male Smoking Status No Information Chief Complaint And Reason For Visit No Information Reason For Referral Reason For Referral No Information History Of Present Illness Encounter Date Complaint History Of Prese nt Illness No Information Functional Status Date Functional Assessmen t No Information Instructions Date Instruction Additional Infor mation No Information Assessments Type Assessment Date No Information Patient Care Teams Name Effective Dates (start - stop) Status Members No Information
[2025-05-18 11:39] LABS: Hematocrit 45.5 % (42.0-52.0); Hemoglobin 15.3 g/dL (14.0-18.0); Immature Granulocyte Percent A 0.1 % (0-0.5); Lymphocytes Absolute Auto 0.88 K/mm3 (0.9-3.2); Mean Corpuscular HGB Conc 33.6 g/dl (32-36); Mean Corpuscular Hemoglobin 35.3 pg (26-34); Mean Corpuscular Volume 105.1 fl (80-100); Nucleated Red Blood Cells Absolute Auto 0.000 K/mm3 (0.0-0.012); Nucleated Red Blood Cells Perc 0.0 % (0.0-0.2); Platelet Count Result 253 k/mm3 (150-375); Red Blood Count 4.33 M/mm3 (4.6-6.20); White Blood Count 8.6 K/mm3 (4.5-10.0)
--- OUTSIDE RECORDS SUMMARY | 2025-05-18 11:51 | XMS_ITS | Encounter Summary ---
Author Organization [facility] Address [address] [facility] [place] [address] Care Team Providers Care Anchor Tack Puller Name Role Phone Unavailable Primary Care Provider Unavailabl e Encounter Details Date Type Department Care Team (Late st Contact Info) Description 08/27/2020 Lab Requisition [facility] DermPath Lab [address] [facility], [place] [address] Shaquille Padilla Jr., MD [address] [facility] [address] [facility] [address] [place] [address] Social History Tobacco Use Types Packs/Day Years Used Date Smoking Tobacco: Never Assessed Sex and Gender Information Value Date Recorded Sex Assigned at Not on file 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 Gender Identity Not on file Sexual Orientation Not on file documented as of this encounter Plan of Treatment Not on file documented as of this encounter Procedures Procedure Name Priority Date/Time Associated Diagnosis Comments DERMATOPATHOLOGY Routine 08/27/2020 12:0 0 AM COMPLIANCE REPRESENTATIVE DEALER documented in this encounter Results * DERMATOPATHOLOGY (08/27/2020 12:00 AM COMPLIANCE REPRESENTATIVE DEALER) Case Report Dermatopathology Report Case: [id number] Authorizing Provider: Shaquille Padilla Jr., MD Collected: 08/27/2020 12:00 AM Ordering Location: [facility] DermPath Lab Received: 08/27/2020 12:28 PM Pathologist: Edwin Mclean MD Specimen: Skin, left superior medial malar cheek 1:28 PM COMPLIANCE REPRESENTATIVE DEALER DERMATOPATHOLOGY LABORATORY Final Diagnosis Specimen A. SKIN, left superior medial malar cheek: ACTINIC KERATOSIS; EXTENDING TO THE BASE OF THE SPECIMEN (L57.0) (see microscopic description and comment) 1:28 PM COMPLIANCE REPRESENTATIVE DEALER DERMATOPATHOLOGY LABORATORY at [address] COMPLIANCE REPRESENTATIVE DEALER Clinical History Basal cell carcinoma vs irritated seborrheic keratosis vs actinic keratosis vs squamous cell carcinoma. . 1:28 PM [facility] DERMATOPATHOLOGY LABORATORY Gross Description Specimen A: Received is one formalin filled container labeled with the patient's name and designated left superior medial malar cheek. The specimen consists of a shave biopsy measuring [id number]. Jar 0. 1:28 PM [facility] DERMATOPATHOLOGY LABORATORY Microscopic Description Specimen A. SKIN, left superior medial malar cheek: There is focal parakeratosis. The lower half of the epidermis shows disorderly maturation of keratinocytes with nuclear pleomorphism. This process extends to the base of the specimen. COMMENT: A squamous cell carcinoma cannot be ruled out. Additional deeper sections were obtained and reviewed. 1:28 PM [facility] DERMATOPATHOLOGY LABORATORY Disclaimer An external and internal positive and negative controls are appropriate for the histochemical, immunohistochemical and immunofluorescence stain(s) in this case (if any), except where stated explicitly. The performance characteristics of the stain(s) cited in this report were developed and its performance characteristic determined by the Dermatopathology Laboratory at [facility], directed by Dr. Abril Mclean. These tests need not be, and therefore are not, approved by the [place] Food and Drug Administration. The tests are used for clinical purposes. Billing Codes Specimen Charges Stain Charges 55941 1 1:28 PM [facility] DERMATOPATHOLOGY LABORATORY Embedded Images 1:28 PM [facility] DERMATOPATHOLOGY LABORATORY Pathology/Cytolog y TISSUE SPECIMEN FROM SKIN / Unknown 08/27/2020 08/27/2020 12:28 PM [facility] Shaquille Padilla Jr., MD LAB - PATHOLOGY/CYTOLOG Y ORDERABLES Final Result DERMATOPATHOLOGY LABORATORY [facility] - Department of Dermatology [address] [phone] documented in this encounter Visit Diagnoses Not on filedocumented in this encounter
--- OUTSIDE RECORDS SUMMARY | 2025-05-18 11:51 | XMS_ITS | Encounter Summary ---
Author Organization [facility] Address [address] [facility] [place] [address] Care Team Providers Care Western Philosophy Professor Name Role Phone Unavailable Primary Care Provider Unavailabl e Encounter Details Date Type Department Care Team (Late st Contact Info) Description 05/19/2023 Lab Requisition [facility] - DermPath Lab [address] 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 Gender Identity Not on file Sexual Orientation Not on file documented as of this encounter Plan of Treatment Not on file documented as of this encounter Procedures Procedure Name Priority Date/Time Associated Diagnosis Comments DERMATOPATHOLOGY Routine 05/18/2023 3:33 AM CDT documented in this encounter Results * DERMATOPATHOLOGY (05/18/2023 3:33 AM CDT) Case Report Dermatopathology Report Case: [id number] Authorizing Provider: Shaquille Padilla Jr., MD Collected: 05/18/2023 03:33 AM Ordering Location: [facility] DermPath Lab Received: 05/19/2023 11:26 AM Pathologist: Lisa Christensen MD Specimen: Skin, right central parietal scalp 1:41 PM CDT DERMATOPATHOLOGY LABORATORY Final Diagnosis Specimen A. SKIN, right central parietal scalp: SQUAMOUS CELL CARCINOMA IN SITU, PRESENT AT THE BASE OF THE SPECIMEN (D04.4) (see microscopic description and comment) OVERLYING CUTANEOUS HORN (L85.8) 1:41 PM CDT DERMATOPATHOLOGY LABORATORY at 1341 CDT Clinical History Squamous Cell Carcinoma vs. Actinic [...] characteristic determined by the Dermatopathology Laboratory at [facility], directed by Dr. Abril Mclean. These tests need not be, and therefore are not, approved by the [place] Food and Drug Administration. The tests are used for clinical purposes. Billing Codes Specimen Charges Stain Charges 46300 1 1:41 PM CDT DERMATOPATHOLOGY LABORATORY Embedded Images 1:41 PM CDT DERMATOPATHOLOGY LABORATORY Pathology/Cytolo gy TISSUE SPECIMEN FROM SKIN / Unknown 05/18/2023 3:33 AM CDT 05/19/2023 11:26 AM CDT us Shaquille Padilla Jr., MD LAB - PATHOLOGY/CYTOLOG Y ORDERABLES Final Result DERMATOPATHOLOGY LABORATORY [facility] - Department of Dermatology [address] [phone] documented in this encounter Visit Diagnoses Not on filedocumented in this encounter
--- OUTSIDE RECORDS SUMMARY | 2025-05-18 11:51 | XMS_ITS | Clinical Summary ---
Author Organization [facility] Address [address] [place] [address] Care Team Providers Care Senior Client Advisor Name Role Phone Naif Nava MD Primary Care Provider [phone] Allergies No known active allergies Medications aspirin (ECOTRIN EC) 81 mg Tablet, Delayed Release (E.C.) 9 Active carvedilol (COREG) 12.5 mg tablet Take 12.5 mg by mouth. 8 Active cetirizine (ZyrTEC) 10 mg tablet Take 10 mg by mouth. Active tamsulosin (FLOMAX) 0.4 mg capsule 0.4 mg. 6 Active loperamide (IMODIUM) 2 mg capsule 2 mg. 0 Active Vit C-Vit W-Mouebx-MsJh- Lutein (PRESERVISION LUTEIN) 226 mg-200 unit -5 [...] Diagnosed Date Macular degeneration 04/09/2020 History of [place] (myocardial infarction) 04/09/2020 Folic acid overdose of undetermined intent 11/22 Encounters Date Type Department Care Team Description 04/04/2025 External Device Data STL ABSTRACTION Provider, Abstract 03/01/2025 External Device Data STL ABSTRACTION Provider, Abstract 02/28/2025 External Device Data STL ABSTRACTION Provider, Abstract [...] Description 05/26/2025 12:00 PM CDT Office Visit [facility] Oncology and Hematology - [place] [address] [place] [address] Miller Nichole MD [address] [facility] [address] [place] [address] Health Maintenance Due Date Last Done Comments DTAP/TDAP/TD VACCINES (1 - Tdap) 1959 Traditional Medicare (ACO) Annual Wellness Visit 04/07 PNEUMOCOCCAL VACCINE 50+ YEARS (1 of 1 - PCV) 04/07/19 91 ZOSTER VACCINE (1 of 2) 1991 RSV VACCINE (60+ or ) (1 - 1-dose 75+ series) 2016 INFLUENZA VACCINE (#1) 2025 Insurance MEDICARE PART A AND B MEDICARE PART A AND B [facility] CHOICE [id number] Care Teams Senior Client Advisor Relationship Specialty Start Date End Date Naif Nava MD [address] [place] [address] PCP - General Family Practice 11/05/18
--- OUTSIDE RECORDS SUMMARY | 2025-05-18 11:51 | XMS_ITS | Clinical Summary ---
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 Gender Identity Not on file Sexual Orientation Not on file Plan of Treatment Health Maintenance Due Date Last Done Comments DTaP, Tdap and Td Vaccines ( 1 - Tdap) 1960 Pneumococcal Vaccine: 50+ Ye ars (1 of 1 - PCV) 1991 Zoster Vaccines (1 of 2) 1991 RSV Immunization or 60+ Years (1 - 1-dose 75+ series) 2016 COVID-19 Vaccine (1 - 2023-2 5 season) 2025 Meningococcal B Vaccine Aged Out No l onger eligible based on patient's age to complete this topic Meningococcal Vaccine Aged Out No rema varsha eligible based on patient's age to complete this topic RSV Immunizations Under 20 Months Aged Out No longer eligible based on patient's age to complete this topic Advance Directives Documents on File Type Date Recorded Patient Obstetrical Tech Expl anation Advance Directives and Living Will 10/27/2007 12:00 AM POWER OF EDUCATION SPECIALIST FO R HEALTH CARE Advance Directives and Living Will 10/27/2007 12:00 AM POWER OF EDUCATION SPECIALIST FO R HEALTH CARE
--- OUTSIDE RECORDS SUMMARY | 2025-05-18 11:51 | XMS_ITS | Clinical Summary ---
Author Organization [facility] Address [address] [place] [address] Care Team Providers Care Energy Consultant Name Role Phone Unavailable Primary Care Provider Unavailabl e Source Comments [facility] [employer],non-owned Affiliates and Associated Physician Practices is amultiple site organization consisting of ambulatory clinics and hospital sitesin [place], [place], [place] and [place]. This disclosure is being madepursuant to the Care Everywhere program and may not contain all information available regarding this patient. 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 Gender Identity Not on file Sexual Orientation Not on file Plan of Treatment Health Maintenance Due Date Last Done Comments MEDICARE AWV 12 MONTHS 1940 DTAP/TDAP/TD VACCINES (1 - Tdap) 1960 PNEUMOCOCCAL VACCINE 50+ (1 of 1 - PCV) 1991 ZOSTER VACCINE (1 of 2) 1991 Respiratory Syncytial Virus (RSV) Vaccine Pt: or over 60 yrs (1 - 1-dose 75+ series) 2016 DEPRESSION SCREENING 08/17/2024 COVID-19 VACCINE ( - 2023-2 5 season) 2025 INFLUENZA VACCINE (#1) 2025 HEPATITIS B VACCINE Aged Out No [...] complete this topic Insurance MEDICARE MEDICARE [facility] Address: [address] [place] [address]
--- OUTSIDE RECORDS SUMMARY | 2025-05-18 11:51 | XMS_ITS | Clinical Summary ---
Author Organization [facility] [address] Address [address] [place] [address] Care Team Providers Care Double Surface Operator Name Role Phone Naif Nava MD Primary Care Provider Allergies No known active allergies Medications vit C-vit P-rxiyep-yvll-l utein (PRESERVISION LUTEIN) 226 mg-200 unit -5 mg-0.8 mg capsule Take as directed 0 0 12/19/2008 Active aspirin 81 mg tablet 09/28/2008 Active zolpidem (AMBIEN) 10 mg tabletIndicatio ns:Sleep-Onset Insomnia Take 0.5 tablets (5 mg total) by mouth nightly as needed (insomnia) 30 tablet 07/04/2019 Active cholecalciferol 25 mcg (1,000 unit) tablet Take 1 tablet (1,000 Units total) by mouth daily Active hydrOXYzine (ATARAX) 10 mg tablet Take 1 tablet (10 mg total) by mouth every 8 (eight) hours as needed 11/02/2024 Active atorvastatin (LIPITOR) 40 mg tabletIndicatio ns:Coronary artery disease involving tanacross coronary artery of tanacross heart without angina pectoris,Hyperc holesteremia Take 1 tablet (40 mg total) by mouth daily 90 tablet 3 11/10/2024 Active carvediloL (COREG) 12.5 mg tablet Take 1 tablet (12.5 mg total) by mouth 2 (two) times a day with meals 180 tablet 3 11/10/2024 Active Active Problems Problem Noted Date Diagnosed Date Hypercholesteremia 07/04/2019 Bilateral carotid bruits 06/25/2018 Osteoarthritis of multiple joints 06/21/2018 Idiopathic peripheral neuropathy 06/21/2018 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 06/15/2017 Presence of stent in coronary artery 05/30/2016 Overview (11/20/2016): Stented coronary artery Old myocardial infarction 05/30/2016 Overview (11/20/2016): Old NV (myocardial infarction) Resolved Problems Problem Noted Date Diagnosed Date Resolved Date Tingling of left upper extremity 06/21/2018 07/04/2019 Dyslipidemia 06/15/2017 07/04/2019 Surgical History Surgery Date Site/Laterality Comments OTHER [...] on file 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 Gender Identity Not on file Sexual Orientation [...] 3:01 PM CDT Height 185.4 cm (6' 1) 11/10/2024 3:01 PM CDT Body Mass Index 23.35 11/10/2024 3:01 PM CDT Plan of Treatment Health Maintenance Due Date Last Done Comments Depression Screening 1941 Fall Risk Assessment 1941 DTaP/Tdap/Td Vaccine (1 - Tdap) 1952 Hepatitis B Screening 1959 Pneumococcal vaccine 65+ (1 of 1 - PCV) 1991 Zoster Vaccine (1 of 2) 1991 Well Visit 65+ 2006 Influenza Vaccine (#1) 2025 9, 05/09/2018, 05/17/2017 Insurance MEDICARE [facility] Address: [address] [address] [place] [address] [facility] MEDICARE [employer] BENEFITS MEDICARE [facility] Care Teams Double Surface Operator Relationship Specialty Start Date End Date Naif Nava MD PCP - General 02/24/14
[2025-05-18 16:34] LABS: Alanine Aminotransferase 15 U/L (6-50); Albumin Level 4.0 g/dL (3.5-5.1); Alkaline Phosphatase 86 U/L (38-126); Anion Gap 6 mmol/L (4-12); Aspartate Amino Transferase 69 U/L (17-59); Bilirubin,Total 0.5 mg/dL (0.2-1.3); Blood Urea Nitrogen 21 mg/dL (9-20); Calcium 9.1 mg/dL (8.4-10.2); Carbon Dioxide 28 mmol/L (22-30); Chloride 102 mmol/L (98-107); Estimated Glomerular Filt Rate > 60; Glucose 88 mg/dL (65-110); Potassium 4.7 mmol/L (3.4-5.0); Sodium 136 mmol/L (137-145); Total Protein 6.8 g/dL (6.3-8.2)
[2025-05-18 16:40] LABS: Iron 81 ug/dL (49-181)
[2025-05-18 16:50] LABS: Percent Iron Saturation 33 % (20-50)
[2025-05-18 17:21] LABS: Ferritin 48.50 ng/mL (11.1-264)
[2025-05-18 17:47] LABS: Vitamin B12 412.0 pg/mL (239-931)
== END 2025-05-18 11:28 | disposition home or self-care (01) ==
LOC: ANHLAB 11:28
PROVIDERS: PCP Family Medicine; Visit Provider Internal Medicine Hematology & Oncology
DX: D64.9 Anemia, unspecified (principal)
CPT/HCPCS: 36415; 80053; 82607; 82728; 82746; 83540; 83550; 85025